=== PATIENT | female | born 2000 | race Caucasian/White ===

== ENCOUNTER 2020-05-12 02:22 | Emergency (ER) | payer SELFPAY ==
[2020-05-12 02:27] VITALS: BP 132/94; PULSE 100; RESP 16; TEMP 36.2; O2SAT 98; BMI 30.9
--- NOTE | 2020-05-12 02:37 | W.ED.ABDPA2 ---
HPI - Abdominal Pain General: Chief Complaint: Abdominal Pain Stated Complaint: Abd pain Time Seen by Provider: 05/12/20 02:26 Source: patient Mode of arrival: ambulatory Limitations: no limitations History of Present Illness: HPI narrative: 19-year-old female states she started having abdominal pain that is cramping in nature first. She states that it is gotten more sharp tonight is in her right lower quadrant. Is worse with movement improved with rest. She states it is been going on for roughly 24 hours. MD elicited complaint: abdominal pain Pertinent past history: none Onset (ago): hour(s) Pain Consistency: constant Location: RLQ Severity: moderate Quality: stabbing Radiation: none Migration to: no migration Exacerbating factors: movement Relieving factors: rest Associated Symptoms: Reports nausea; Denies chills, dysuria and fever(s) Related Data: Date of Last Menstrual Period: 05/01/20 Review of Systems Const: Denies: fever(s), chills, body aches or change in appetite Eyes: Denies: blurry vision or eye discomfort ENMT: Denies: throat pain or dental pain Card: Denies: chest pain Resp: Denies: dyspnea GI: Reports: abdominal pain and nausea : Denies: dysuria Musc: Denies: neck pain or back pain Skin/Breast: Denies: rash Neuro: Denies: headache(s) Psych: Denies: depression [place]/Lymph: Denies: easy bruising All/Imm: Denies: urticaria [facility] Female Reproductive History: Date of last menstrual period: 05/01/20 Physical Exam Const: COMMON NORMALS: no acute distress, patient oriented x3 and healthy appearing HENMT: COMMON NORMALS: normocephalic and atraumatic HEAD & SCALP: normocephalic and atraumatic Eye: COMMON NORMALS: Equal, round and reactive pupils present and EOMs intact bilaterally PUPIL: Yes Equal, round and reactive pupils present Neck/C-Spine: COMMON NORMALS: full ROM and supple Chest: COMMONS NORMALS: normal inspection of the chest and normal palpation of entire chest wall Resp: COMMON NORMALS: normal respiratory effort, No retractions, No use of accessory muscles and clear to auscultation bilaterally AUSCULTATION: clear to auscultation bilaterally Cardio: COMMON NORMALS: regular rate, regular rhythm and No murmurs present (Cardio) RATE: regular rate RHYTHM: regular rhythm GI: COMMON NORMALS: Normal to inspection, nondistended, normoactive bowel sounds present, Soft to palpation and no masses PALPATION: Yes Soft to palpation and Yes Tenderness to palpation present (GI) Details: RLQ Extremity: COMMON NORMALS: normal to inspection and full ROM Neuro: COMMON NORMALS: patient oriented x3, moves all extremities and no focal motor deficits Psych: COMMON NORMALS: mental status grossly normal, Normal thought process present and cooperative THOUGHT PROCESS: Normal thought process present Skin: COMMON NORMALS: no rashes or lesions noted and no wounds GENERAL SKIN EXAM: no rashes or lesions noted Course Vital Signs: Vital signs: Vital Signs Temperature 97.2 F L 05/12/20 02:27 Pulse Rate 74 05/12/20 04:03 Respiratory Rate 16 05/12/20 04:03 Blood Pressure 115/72 05/12/20 04:03 Pulse Oximetry 98 05/12/20 04:03 MDM - Abdominal Pain MDM Narrative: Medical decision making narrative: Patient presents here with abdominal pain that since resolved. Her exam at discharge is benign. CT scan shows no signs of appendicitis. Patient's lab work here is normal as well. She is stable for discharge will place her on Bentyl. She is to follow-up with PCP in 3 to 5 days return if worsening. Lab Data: Labs: Lab Results 05/12/20 05/12/20 05/12/20 Range/Units 02:50 02:50 03:00 WBC 12.1 H (4.0-10.0) 10^3/ uL RBC 4.72 (4.1-5.3) 10^6/u L Hgb 14.6 (11.5-15.3) g/dL Hct 43.8 (37.0-47.0) % MCV 92.8 (81-99) fL MCH 30.9 (28.0-34.0) pg MCHC 33.3 (30.0-36.0) g/dL RDW 11.6 L (12.1-15.1) % Plt Count 393 (130-400) 10^3/c mm MPV 10.4 (7.4-10.4) fL Neut % (Auto) 72.9 % Lymph % (Auto) 20.7 % [place] % (Auto) 5.4 % Eos % (Auto) 0.3 % Baso % (Auto) 0.5 % Neut # (Auto) 8.83 H (1.8-7.7) 10^3/u L Lymph # (Auto) 2.5 (0.8-4.8) 10^3/u L [place] # (Auto) 0.7 (0.2-0.9) 10^3/u L Eos # (Auto) 0.0 (0.0-0.8) 10^3/u L Baso # (Auto) 0.1 (0.0-0.1) 10^3/u L Nucleated RBC % (a uto) 0 % Nucleated RBCs # 0.0 /100WBC Sodium (136-145) mmol/L Potassium (3.5-5.1) mmol/L Chloride (98-107) mmol/L Carbon Dioxide (22-29) mmol/L Anion Gap (5-19) BUN (6-20) mg/dL Creatinine (0.5-0.9) mg/dL GFR Calculation (90-130) mL/min Glucose (65-115) mg/dL Calculated Osmolal ity (285-295) mOsm/k g Calcium (8.5-10.5) mg/dL Total Bilirubin (0.15-1.2) mg/dL AST (0-32) U/L ALT (0-33) U/L Alkaline Phosphata se (35-105) IU/L Total Protein (6.6-8.7) g/dL Albumin (3.5-5.2) g/dL Globulin (1.3-4.6) g/dL Lipase (13-60) U/L HCG, Qual Negative (Negative) Urine Color Yellow (Yellow) Urine Appearance Clear (CLEAR) Urine pH 5 (5-7) Ur Specific Gravit y 1.020 (1.005-1.030) Urine Protein Neg (Negative) Urine Glucose (UA) Norm (Normal) Urine Ketones 1+ H (Negative) Urine Blood 2+ H (Negative) Urine Nitrate Negative (Negative) Urine Bilirubin Neg (Negative) Urine Urobilinogen Norm (Negative) mg/dL Ur Leukocyte Sera ase Negative (Negative) Urine RBC 0-4 H (0-2) /hpf Urine WBC 0-4 H (0-5) /hpf Ur Squamous Epith Cells 15-25 H (0-5) /hpf Amorphous Sediment Not Reportable Urine Bacteria 1+ H (NONE) /hpf Urine Mucus Trace /hpf 05/12/20 Range/Units 03:00 WBC (4.0-10.0) 10^3/ uL RBC (4.1-5.3) 10^6/u L Hgb (11.5-15.3) g/dL Hct (37.0-47.0) % MCV (81-99) fL MCH (28.0-34.0) pg MCHC (30.0-36.0) g/dL RDW (12.1-15.1) % Plt Count (130-400) 10^3/c mm MPV (7.4-10.4) fL Neut % (Auto) % Lymph % (Auto) % [place] % (Auto) % Eos % (Auto) % Baso % (Auto) % Neut # (Auto) (1.8-7.7) 10^3/u L Lymph # (Auto) (0.8-4.8) 10^3/u L [place] # (Auto) (0.2-0.9) 10^3/u L Eos # (Auto) (0.0-0.8) 10^3/u L Baso # (Auto) (0.0-0.1) 10^3/u L Nucleated RBC % (a uto) % Nucleated RBCs # /100WBC Sodium 138 (136-145) mmol/L Potassium 3.7 (3.5-5.1) mmol/L Chloride 102 (98-107) mmol/L Carbon Dioxide 23 (22-29) mmol/L Anion Gap 16.7 (5-19) BUN 8 (6-20) mg/dL Creatinine 0.7 (0.5-0.9) mg/dL GFR Calculation 105.6 (90-130) mL/min Glucose 97 (65-115) mg/dL Calculated Osmolal ity 284 L (285-295) mOsm/k g Calcium 9.6 (8.5-10.5) mg/dL Total Bilirubin 0.5 (0.15-1.2) mg/dL AST 24 (0-32) U/L ALT 32 (0-33) U/L Alkaline Phosphata se 85 (35-105) IU/L Total Protein 8.2 (6.6-8.7) g/dL Albumin 4.8 (3.5-5.2) g/dL Globulin 3.4 (1.3-4.6) g/dL Lipase 22 (13-60) U/L HCG, Qual (Negative) Urine Color (Yellow) Urine Appearance (CLEAR) Urine pH (5-7) Ur Specific Gravit y (1.005-1.030) Urine Protein (Negative) Urine Glucose (UA) (Normal) Urine Ketones (Negative) Urine Blood (Negative) Urine Nitrate (Negative) Urine Bilirubin (Negative) Urine Urobilinogen (Negative) mg/dL Ur Leukocyte Sera ase (Negative) Urine RBC (0-2) /hpf Urine WBC (0-5) /hpf Ur Squamous Epith Cells (0-5) /hpf Amorphous Sediment Urine Bacteria (NONE) /hpf Urine Mucus /hpf Imaging Data ^: CT Abd/Pel: Attestation: I personally reviewed and interpreted this imaging study as follows: Radiologist's impression: [place] [address] CT Scan Report Signed Patient: Rolly Nickerson Unit #: [id number] : 2000 Age/Sex: 19 / F ADM Date: 05/12/20 Loc: ER Room/Bed: Attending Dr: Ordering Provider/Ordering MD: Neno Russell MD Date of Service: 05/12/20 Procedure(s): CT abdomen pelvis w con* [id number] Accession Number(s): [id number] Report Number: [id number] PROCEDURE INFORMATION: Exam: CT Abdomen And Pelvis With Contrast Exam date and time: 05/12/2020 2:38 AM Age: 19 years old Clinical indication: Abdominal pain; Localized; Right lower quadrant (rlq); Prior surgery; Surgery date: 6+ months; Surgery type: Gb; Additional info: Rlq pain TECHNIQUE: Imaging protocol: Computed tomography of the abdomen and pelvis with intravenous contrast. Radiation optimization: All CT scans at this facility use at least one of these dose optimization techniques: automated exposure control; mA and/or kV adjustment per patient size (includes targeted exams where dose is matched to clinical indication); or iterative reconstruction. Contrast material: OMNI 300; Contrast volume: 95 ml; Contrast route: INTRAVENOUS (IV); COMPARISON: No relevant prior studies available. RADIATION DOSE METRICS: Total DLP (mGy-cm): 1371.74 FINDINGS: Lungs: The lung bases are clear. Liver: Unremarkable. Gallbladder and bile ducts: Prior cholecystectomy, no significant biliary tree dilation.. Pancreas: Unremarkable. Spleen: Unremarkable. Adrenals: Unremarkable. Kidneys and ureters: No hydronephrosis of either kidney. No visible ureteral calculus. No perinephric fluid. The kidneys enhance homogeneously. Stomach and bowel: There are no CT findings to strongly suggest diverticulitis. Appendix: The appendix is visualized and appears normal. Intraperitoneal space: No free air, ascites, or bowel distention. Vasculature: No evidence for abdominal aortic aneurysm. Lymph nodes: No retroperitoneal adenopathy. Bladder: Suspect mild to moderate diffuse urinary bladder wall thickening. Evaluation is somewhat limited, as the bladder is not well distended. While nonspecific, this could indicate evidence for cystitis. Please correlate clinically. Reproductive: Essentially unremarkable for age. Bones/joints: No significant acute finding. Soft tissues: Very small umbilical hernia, containing only fat. CT/CT abdomen pelvis w con* [id number] IMPRESSION: 1. Normal appendix. 2. Possible mild urinary bladder wall thickening, see above. 3. No hydronephrosis of either kidney. No visible ureteral calculus. No perinephric fluid. 4. No free air or bowel distention. 5. Other findings discussed above. 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
[2020-05-12] MEDS: sodium chloride 0.9% 1,000 ML 999 ML IV (02:56)
[2020-05-12 02:58] VITALS: RESP 16; O2SAT 97
[2020-05-12] MEDS: morphine 4 mg/mL SDV 1 mL IVP (02:58)
[2020-05-12] MEDS: ondansetron 2 mg/ML SDV 2 mL 4 MG IVP (03:00)
[2020-05-12 03:02] VITALS: BP 127/81; PULSE 92; RESP 16; O2SAT 98
[2020-05-12 03:16] LABS: Basophils # 0.1 10^3/uL (0.0-0.1); Basophils % 0.5 %; Eosinophils % 0.3 %; Hematocrit 43.8 % (37.0-47.0); Hemoglobin 14.6 g/dL (11.5-15.3); Lymphocytes # 2.5 10^3/uL (0.8-4.8); Lymphocytes % 20.7 %; Mean Corpuscular HGB Conc 33.3 g/dL (30.0-36.0); Mean Corpuscular Hemoglobin 30.9 pg (28.0-34.0); Mean Corpuscular Volume 92.8 fL (81-99); Mean Platelet Volume 10.4 fL (7.4-10.4); Monocytes # 0.7 10^3/uL (0.2-0.9); Monocytes % 5.4 %; Neutrophils # 8.83 10^3/uL (1.8-7.7); Neutrophils % 72.9 %; Nucleated Red Blood Cells % 0 %; Platelet Count 393 10^3/cmm (130-400); Red Blood Count 4.72 10^6/uL (4.1-5.3); Red Cell Distribution Width 11.6 % (12.1-15.1); White Blood Count 12.1 10^3/uL (4.0-10.0)
[2020-05-12 03:22] LABS: HCG Qualitative Urine. Negative (Negative)
[2020-05-12 03:31] LABS: Add Urine Microscopic? YES; Bilirubin Urine Neg (Negative); Blood Urine 2+ (Negative); Glucose Urine UA Norm (Normal); Ketones Urine 1+ (Negative); Leukocyte Esterase Urine Negative (Negative); Nitrate Urine Negative (Negative); Protein Urine Neg (Negative); Urine Appearance Clear (CLEAR); Urine Color Yellow (Yellow); Urobilinogen Urine Norm (Negative); pH Urine 5 (5-7)
[2020-05-12 03:34] LABS: Alanine Aminotransferase 32 U/L (0-33); Albumin Level 4.8 g/dL (3.5-5.2); Alkaline Phosphatase 85 IU/L (35-105); Anion Gap 16.7 (5-19); Aspartate Amino Transferase 24 U/L (0-32); Blood Urea Nitrogen 8 mg/dL (6-20); Calcium 9.6 mg/dL (8.5-10.5); Carbon Dioxide 23 mmol/L (22-29); Chloride 102 mmol/L (98-107); Globulin 3.4 g/dL (1.3-4.6); Glomerular Filtration Rate 105.6 mL/min (90-130); Glucose 97 mg/dL (65-115); Lipase 22 U/L (13-60); Osmolality Calculated 284 mOsm/kg (285-295); Potassium 3.7 mmol/L (3.5-5.1); Sodium 138 mmol/L (136-145); Total Bilirubin 0.5 mg/dL (0.15-1.2); Total Protein 8.2 g/dL (6.6-8.7)
[2020-05-12] MEDS: iohexol 300 mg/mL 100 mL Btl IV (03:34)
[2020-05-12 03:40] LABS: Add Urine Culture? No; Bacteria Urine 1+ /hpf; Mucus Urine TRACE /hpf; RBC Urine 0-4 /hpf (0-2); Squamous Epithelial Cell Urine 15-25 /hpf (0-5); WBC Urine 0-4 /hpf (0-5)
[2020-05-12 04:03] VITALS: BP 115/72; PULSE 74; RESP 16; O2SAT 98
[2020-05-12 04:25] VITALS: BP 123/88; PULSE 79; RESP 16; TEMP 36.6; O2SAT 100
== END 2020-05-12 04:28 | disposition home or self-care (01) ==
PROVIDERS: Emergency Provider Emergency Medicine
DX: R10.84 Generalized abdominal pain (principal)
CPT/HCPCS: 12345; 74177; 80053; 81001; 81025; 83690; 85025; 96360; 96374; 99283; 99284; J2270; J2405; J7030; Q9967

== ENCOUNTER 2020-12-24 13:59 | Emergency (ER) | payer SELFPAY ==
[2020-12-24 14:22] VITALS: BP 123/86; PULSE 107; RESP 18; TEMP 36.9; O2SAT 99; BMI 35.4
--- NOTE | 2020-12-24 16:28 | USCV_ITS ---
Rolly Nickerson Age: 20 Gender: F : 2000 Exam Date: 12/24/2020 16:37 Ordering Phys: Regla Song Technologist: Cassie Russo Exam Location: [facility] Indication: LUE PAIN AND SWELLING NEAR ACF HISTORY: Upper extremity swelling. Upper extremity pain. PROCEDURES: Venous duplex imaging was performed in only the left upper extremity. The following venous structures were evaluated: internal jugular vein, subclavian vein, axillary vein, and brachial veins. Serial compression, augmentation maneuvers, and spectral Doppler flow evaluation were performed. FINDINGS: LUE NEG FOR DVT CONCLUSIONS No evidence of thrombus of the left upper extremity veins. Allan Cid MD (Electronically Signed) Final Date: 24 Dec 2020 16:59 S
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
== END 2020-12-24 16:57 | disposition home or self-care (01) ==
PROVIDERS: Emergency Provider Physician Assistant
DX: M77.8 Other enthesopathies, not elsewhere classified (principal)
CPT/HCPCS: 93971; 99282

== ENCOUNTER 2021-06-16 22:57 | Emergency (ER) | payer SELFPAY ==
[2021-06-16 23:03] VITALS: BP 133/85; PULSE 107; RESP 16; TEMP 36.8; O2SAT 100; BMI 31.8
--- NOTE | 2021-06-16 23:36 | W.ED.GENADLT ---
HPI - General Adult General: Chief complaint: General Medical Stated complaint: knot under left arm pit Time Seen by Provider: 06/16/21 23:28 History of Present Illness: HPI narrative: Patient comes in for a tender nodule to the left axilla. On exam patient appears well. Patient appears no acute distress. Patient denies any chronic medical problems. Review of Systems General: Reports: 10 or more systems reviewed and unremarkable except in HPI and below Skin/Breast: Reports: new lesions [facility] Female Reproductive History: Date of last menstrual period: 06/04/21 Physical Exam Const: COMMON NORMALS: no acute distress and patient oriented x3 GENERAL APPEARANCE: cooperative HENMT: COMMON NORMALS: normocephalic and Normal external nose present HEAD & SCALP: normal to inspection and normocephalic NOSE: Normal external nose present Eye: GENERAL EYE: appearance normal, both eyes and all related structures Neck/C-Spine: COMMON NORMALS: full ROM Chest: COMMONS NORMALS: normal inspection of the chest Resp: COMMON NORMALS: normal respiratory effort EFFORT & INSPECTION: Yes able to speak in complete sentences Cardio: COMMON NORMALS: regular rate and regular rhythm RATE: regular rate RHYTHM: regular rhythm GI: COMMON NORMALS: non-tender Extremity: COMMON NORMALS: normal to inspection Neuro: COMMON NORMALS: patient oriented x3 and moves all extremities Psych: COMMON NORMALS: mental status grossly normal and cooperative Skin: NARRATIVE SKIN EXAM: 1 cm nodule noted to the left axilla that is tender to palpation. Minimal to no redness is noted. No warmth is noted. Course Vital Signs: Vital signs: Vital Signs Temperature 98.3 F 06/16/21 23:03 Pulse Rate 91 06/16/21 23:46 Respiratory Rate 16 06/16/21 23:46 Blood Pressure 102/72 06/16/21 23:46 Pulse Oximetry 95 06/16/21 23:46 MDM - General Adult MDM Narrative: Medical decision making narrative: Patient came in for a tender nodule to the left axilla. On exam there is a palpable nodule that is free moving and tender to touch. Differential diagnosis includes abscess, apocrine cyst, cellulitis. No signs of cellulitis noted at this time. Will start on Bactrim due to the tenderness. Discussed treatment with warm packs and avoidance of of antiperspirants. Recommend follow-up with primary care for further instruction. Return to the ER for worsening symptoms. Patient reported understanding. Discharge Plan Discharge Patient Disposition: Home Clinical Impression: Apocrine cyst Condition: Stable Prescriptions: New Bactrim DS 800-160 mg tablet 1 tab PO BID 7 Days Qty: 14 RF: 0 No Action dicyclomine 20 mg tablet 20 mg PO TID PRN (Reason: abdominal pain) Qty: 20 RF: 0 Discharge Orders: Discharge ED (Routine); Ordered 06/16/21 Ordered By: Keny Rodriguez Discharge Diet: Usual diet Discharge Activity: Increase activity as tolerated Patient Instructions: Cyst (ED), Opioid Safety Activity Restrictions/Additional Instructions: Avoid the use of antiperspirant containing aluminum until the cyst resolves. You may use plain deodorant. Use hot packs to the cyst to help open up the poor in order for it to drain. Monitor for at this to swell or become red. Return to the ER for high fever greater than 100.4 or new concerns. Follow-up with primary care as needed. 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
[2021-06-16 23:46] VITALS: BP 102/72; PULSE 91; RESP 16; O2SAT 95
[2021-06-16] MEDS: sulfamethoxazole-trimeth DS 160-800 mg Tablet 1 TAB PO (23:46)
== END 2021-06-16 23:50 | disposition home or self-care (01) ==
PROVIDERS: Emergency Provider Nurse Practitioner Family
DX: D23.62 Other benign neoplasm of skin of left upper limb, including shoulder (principal)
CPT/HCPCS: 99282

== ENCOUNTER 2021-08-07 15:34 | Emergency (ER) | payer SELFPAY ==
[2021-08-07 15:51] VITALS: BP 118/90; PULSE 92; RESP 20; TEMP 36.6; O2SAT 100
== END 2021-08-07 21:44 | disposition left against medical advice (07) ==
LOC: ER 15:37
DX: Z53.21 Procedure and treatment not carried out due to patient leaving prior to being seen by health care provider (principal)
CPT/HCPCS: 99282

== ENCOUNTER 2021-08-09 09:54 | Emergency (ER) | payer SELFPAY ==
--- NOTE | 2021-08-09 10:18 | W.ED.NAVMDI ---
HPI - Nausea/Vomiting/Diarrhea General: Chief complaint: Abdominal Pain Stated complaint: THROWING UP Time Seen by Provider: 08/09/21 09:56 Source: patient Mode of arrival: ambulatory Limitations: no limitations History of Present Illness: HPI Narrative: 21-year-old female who states she has been having nausea vomiting body aches for last 2 days states she had both levels of the vomiting yesterday and was unable to hold anything down states that she has not had any vomiting today but she has not attempted to drink or eat much today. States she has full body aches denies any fever denies any worsening improving factors. She has had no diarrhea denies any known sick contacts denies any abdominal pain. Associated nausea: Yes Associated symtoms: Reports nausea; Denies chest pain, dysuria or headache(s) Review of Systems Const: Reports: body aches Eyes: Denies: blurry vision or eye discomfort ENMT: Denies: throat pain or dental pain Card: Denies: chest pain Resp: Denies: dyspnea GI: Reports: nausea, vomiting and diarrhea : Denies: dysuria Musc: Denies: neck pain or back pain Skin/Breast: Denies: rash Neuro: Denies: headache(s) Psych: Denies: depression Ashvin/Lymph: Denies: easy bruising All/Imm: Denies: urticaria [facility] ED Female Reproductive History: Date of last menstrual period: 06/04/21 Physical Exam Const: COMMON NORMALS: no acute distress, patient oriented x3 and healthy appearing HENMT: COMMON NORMALS: normocephalic and atraumatic HEAD & SCALP: normocephalic and atraumatic Eye: COMMON NORMALS: Equal, round and reactive pupils present and EOMs intact bilaterally PUPIL: Yes Equal, round and reactive pupils present Neck/C-Spine: COMMON NORMALS: full ROM and supple Chest: COMMONS NORMALS: normal inspection of the chest and normal palpation of entire chest wall Resp: COMMON NORMALS: normal respiratory effort, No retractions, No use of accessory muscles and clear to auscultation bilaterally AUSCULTATION: clear to auscultation bilaterally Cardio: COMMON NORMALS: regular rate, regular rhythm and No murmurs present (Cardio) RATE: regular rate RHYTHM: regular rhythm GI: COMMON NORMALS: Normal to inspection, nondistended, normoactive bowel sounds present, Soft to palpation, non-tender and no masses PALPATION: Yes Soft to palpation Extremity: COMMON NORMALS: normal to inspection and full ROM Neuro: COMMON NORMALS: patient oriented x3, moves all extremities and no focal motor deficits Psych: COMMON NORMALS: mental status grossly normal, Normal thought process present and cooperative THOUGHT PROCESS: Normal thought process present Skin: COMMON NORMALS: no rashes or lesions noted and no wounds GENERAL SKIN EXAM: no rashes or lesions noted Course Vital Signs: Vital signs: Vital Signs Temperature 98.7 F 08/09/21 10:22 Pulse Rate 65 08/09/21 12:51 Respiratory Rate 16 08/09/21 12:51 Blood Pressure 102/78 08/09/21 12:51 Pulse Oximetry 98 08/09/21 12:51 MDM - Nausea/Vomiting/Diarrhea MDM Narrative: Medical decision making narrative: Patient presents with abdominal pain along with nausea vomiting she is well-appearing here CT scan and blood work are all normal she feels much improved after Reglan will prescribe her Zofran for home she is to follow-up with PCP and return if worsening she understands agrees to plan. Lab Data: Labs: Lab Results 08/09/21 08/09/21 08/09/21 10:50 10:50 10:50 WBC 13.7 10^3/uL H 10 ^3/uL (4.0-10.0) RBC 5.25 10^6/uL 10^6 /uL (4.1-5.3) Hgb 16.8 g/dL H g/dL (11.5-15.3) Hct 48.5 % H % (37.0-47.0) MCV 92.4 fl fl (81-99) MCH 32.0 pg pg (28.0-34.0) MCHC 34.6 g/dL g/dL (30.0-36.0) RDW 12.2 % % (12.1-15.1) Plt Count 416 10^3/cmm H 10 ^3/cmm (130-400) MPV 10.4 fL fL (7.4-10.4) Neut % (Auto) 81.9 % % Lymph % (Auto) 10.1 % % Bollinger % (Auto) 7.6 % % Eos % (Auto) 0.0 % % Baso % (Auto) 0.2 % % Neut # (Auto) 11.24 10^3/uL H 1 0^3/uL (1.8-7.7) Lymph # (Auto) 1.4 10^3/uL 10^3/ uL (0.8-4.8) Bollinger # (Auto) 1.0 10^3/uL H 10^ 3/uL (0.2-0.9) Eos # (Auto) 0.0 10^3/uL 10^3/ uL (0.0-0.8) Baso # (Auto) 0.0 10^3/uL 10^3/ uL (0.0-0.1) Nucleated RBC % (a uto) 0 % % Nucleated RBCs # 0.0 /100WBC /100W BC Sodium 140 mmol/L mmol/L (136-145) Potassium 3.6 mmol/L mmol/L (3.5-5.1) Chloride 99 mmol/L mmol/L (98-107) Carbon Dioxide 21 mmol/L L mmol/ L (22-29) Anion Gap 23.6 H (5-19) BUN 13 mg/dL mg/dL (6-20) Creatinine 0.8 mg/dL mg/dL (0.5-0.9) GFR Calculation 88.9 mL/min L mL/ min (90-130) Glucose 94 mg/dL mg/dL (65-115) Calculated Osmolal ity 290 mOsm/kg mOsm/ kg (285-295) Calcium 9.3 mg/dL mg/dL (8.5-10.5) Total Bilirubin 0.8 mg/dL mg/dL (0.15-1.2) AST 27 U/L U/L (0-32) ALT 30 U/L U/L (0-33) Alkaline Phosphata se 83 IU/L IU/L (35-105) Total Protein 8.5 g/dL g/dL (6.6-8.7) Albumin 5.3 g/dL H g/dL (3.5-5.2) Globulin 3.2 g/dL g/dL (1.3-4.6) Lipase 31 U/L U/L (13-60) HCG, Qual Negative (Negative) Urine Color Urine Appearance Urine pH Ur Specific Gravit y Urine Protein Urine Glucose (UA) Urine Ketones Urine Blood Urine Nitrate Urine Bilirubin Urine Urobilinogen Ur Leukocyte Sera ase Urine RBC Urine WBC Ur Squamous Epith Cells Amorphous Sediment Urine Bacteria Urine Mucus SARS-CoV-2 Ag (Rap id) 08/09/21 08/09/21 10:54 10:54 WBC RBC Hgb Hct MCV MCH MCHC RDW Plt Count MPV Neut % (Auto) Lymph % (Auto) Bollinger % (Auto) Eos % (Auto) Baso % (Auto) Neut # (Auto) Lymph # (Auto) Bollinger # (Auto) Eos # (Auto) Baso # (Auto) Nucleated RBC % (a uto) Nucleated RBCs # Sodium Potassium Chloride Carbon Dioxide Anion Gap BUN Creatinine GFR Calculation Glucose Calculated Osmolal ity Calcium Total Bilirubin AST ALT Alkaline Phosphata se Total Protein Albumin Globulin Lipase HCG, Qual Urine Color Dark yellow (Yellow) Urine Appearance Sl hazy (CLEAR) Urine pH 5 (5-7) Ur Specific Gravit y 1.020 (1.005-1.030) Urine Protein Trace (Negative) Urine Glucose (UA) Norm (Normal) Urine Ketones 2+ H (Negative) Urine Blood 3+ H (Negative) Urine Nitrate Negative (Negative) Urine Bilirubin 1+ H (Negative) Urine Urobilinogen 1 mg/dL H mg/dL (Negative) Ur Leukocyte Sera ase Negative (Negative) Urine RBC 0-4 /hpf H /hpf (0-2) Urine WBC 0-4 /hpf H /hpf (0-5) Ur Squamous Epith Cells 15-25 /hpf H /hpf (0-5) Amorphous Sediment 1+ /hpf /hpf Urine Bacteria 1+ /hpf H /hpf (NONE) Urine Mucus 3+ /hpf /hpf SARS-CoV-2 Ag (Rap id) Negative (Negative) Imaging Data^: CT Abd/Pel: Attestation: I personally reviewed and interpreted this imaging study as follows: Radiologist's impression: [address] [address] [address] Scan Report Signed Patient: Rolly Nickerson Unit #: [id number] : 2000 Age/Sex: 21 / F ADM Date: 08/09/21 Loc: ER Room/Bed: Attending Dr: Ordering Provider/Ordering MD: Neno Russell MD Date of Service: 08/09/21 Procedure(s): CT abdomen pelvis w con* [id number] Accession Number(s): [id number] Report Number: [id number] PROCEDURE INFORMATION: Exam: CT Abdomen And Pelvis With Contrast Exam date and time: 08/09/2021 11:29 AM Age: 21 years old Clinical indication: Nausea and vomiting; Abdominal pain; Generalized TECHNIQUE: Imaging protocol: Computed tomography of the abdomen and pelvis with contrast. Radiation optimization: All CT scans at this facility use at least one of these dose optimization techniques: automated exposure control; mA and/or kV adjustment per patient size (includes targeted exams where dose is matched to clinical indication); or iterative reconstruction. Contrast material: OMNI 300; Contrast volume: 95 ml; Contrast route: INTRAVENOUS (IV); COMPARISON: CT abdomen pelvis w con* [id number] 05/12/2020 3:29 AM RADIATION DOSE METRICS: Total DLP (mGy-cm): 1693.19 FINDINGS: Liver: Normal. No mass. Gallbladder and bile ducts: Cholecystectomy. Normal bile ducts. Pancreas: Normal. No ductal dilation. Spleen: There is a 7 mm benign cyst in the spleen. Adrenal glands: Normal. No mass. Kidneys and ureters: Normal. No hydronephrosis. Stomach and bowel: Unremarkable. No obstruction. No mucosal thickening. Appendix: The appendix is identified and is normal. Intraperitoneal space: Unremarkable. No free air. No significant fluid collection. Vasculature: Unremarkable. No abdominal aortic aneurysm. Lymph nodes: Unremarkable. No enlarged lymph nodes. Urinary bladder: Unremarkable as visualized. Reproductive: Unremarkable as visualized. Bones/joints: Unremarkable. No acute fracture. Soft tissues: Unremarkable. CT/CT abdomen pelvis w con* [id number] IMPRESSION: No significant abnormalities are seen in the abdomen and pelvis. Dictated By: Zoltan Yousif Signed By: Zoltan Yousif Signed Date/Time: 08/09/21 1330 DD/ 1129 Discharge Plan Discharge Patient Disposition: Home Clinical Impression: Abdominal pain Qualifiers: Abdominal location: generalized Qualified Code(s): R10.84 - Generalized abdominal pain Vomiting Qualifiers: Vomiting type: unspecified Vomiting Intractability: non-intractable Nausea presence: with nausea Qualified Code(s): R11.2 - Nausea with vomiting, unspecified Condition: Stable Prescriptions: New ondansetron 4 mg tablet,disintegrating 4 mg PO Q6H PRN (Reason: nausea and vomiting) Qty: 14 RF: 0 No Action dicyclomine 20 mg tablet 20 mg PO TID PRN (Reason: abdominal pain) Qty: 20 RF: 0 Discharge Orders: Discharge ED (Routine); Ordered 08/09/21 Ordered By: Neno Russell Discharge Diet: Advance as tolerated Discharge Activity: Resume usual activity Patient Instructions: Acute Nausea and Vomiting (ED), Abdominal Pain (ED) Coding Level of Care Code ED Candy Butcher for Chg Fwd Exam Comprehensive
[2021-08-09 10:22] VITALS: BP 113/75; PULSE 67; RESP 18; TEMP 37.1; O2SAT 95; BMI 30.1
[2021-08-09 10:58] VITALS: BP 102/78; PULSE 67; RESP 18; O2SAT 95
[2021-08-09 11:01] LABS: Basophils % 0.2 %; Hematocrit 48.5 % (37.0-47.0); Hemoglobin 16.8 g/dL (11.5-15.3); Lymphocytes # 1.4 10^3/uL (0.8-4.8); Lymphocytes % 10.1 %; Mean Corpuscular HGB Conc 34.6 g/dL (30.0-36.0); Mean Corpuscular Volume 92.4 fl (81-99); Mean Platelet Volume 10.4 fL (7.4-10.4); Monocytes % 7.6 %; Neutrophils # 11.24 10^3/uL (1.8-7.7); Neutrophils % 81.9 %; Nucleated Red Blood Cells % 0 %; Platelet Count 416 10^3/cmm (130-400); Red Blood Count 5.25 10^6/uL (4.1-5.3); Red Cell Distribution Width 12.2 % (12.1-15.1); White Blood Count 13.7 10^3/uL (4.0-10.0)
[2021-08-09] MEDS: sodium chloride 0.9% 1,000 ML 999 ML IV ×2 (11:01→12:25)
[2021-08-09] MEDS: ondansetron 2 mg/ML SDV 2 mL 4 MG IVP (11:01)
[2021-08-09 11:13] LABS: HCG, Serum Qual Negative (Negative)
[2021-08-09 11:15] LABS: Add Urine Culture? No; Add Urine Microscopic? YES; Amorphous Sediment Urine 1+ /hpf; Bacteria Urine 1+ /hpf; Bilirubin Urine 1+ (Negative); Blood Urine 3+ (Negative); Glucose Urine UA Norm (Normal); Ketones Urine 2+ (Negative); Leukocyte Esterase Urine Negative (Negative); Mucus Urine 3+ /hpf; Nitrate Urine Negative (Negative); Protein Urine Trace (Negative); RBC Urine 0-4 /hpf (0-2); Squamous Epithelial Cell Urine 15-25 /hpf (0-5); Urine Appearance SL Hazy (CLEAR); Urine Color Dark Yellow (Yellow); Urobilinogen Urine 1 mg/dL (Negative); WBC Urine 0-4 /hpf (0-5); pH Urine 5 (5-7)
[2021-08-09 11:20] LABS: Chloride 99 mmol/L (98-107); Sodium 140 mmol/L (136-145)
[2021-08-09 11:23] LABS: SARS Covid-2 Antigen Negative (Negative)
[2021-08-09 11:26] LABS: Albumin Level 5.3 g/dL (3.5-5.2); Anion Gap 23.6 (5-19); Blood Urea Nitrogen 13 mg/dL (6-20); Calcium 9.3 mg/dL (8.5-10.5); Carbon Dioxide 21 mmol/L (22-29); Globulin 3.2 g/dL (1.3-4.6); Glomerular Filtration Rate 88.9 mL/min (90-130); Glucose 94 mg/dL (65-115); Lipase 31 U/L (13-60); Osmolality Calculated 290 mOsm/kg (285-295); Total Bilirubin 0.8 mg/dL (0.15-1.2); Total Protein 8.5 g/dL (6.6-8.7)
[2021-08-09 11:27] LABS: Alanine Aminotransferase 30 U/L (0-33); Alkaline Phosphatase 83 IU/L (35-105); Aspartate Amino Transferase 27 U/L (0-32); Potassium 3.6 mmol/L (3.5-5.1)
--- NOTE | 2021-08-09 11:29 | CTR_ITS ---
PROCEDURE INFORMATION: Exam: CT Abdomen And Pelvis With Contrast Exam date and time: 08/09/2021 11:29 AM Age: 21 years old Clinical indication: Nausea and vomiting; Abdominal pain; Generalized TECHNIQUE: Imaging protocol: Computed tomography of the abdomen and pelvis with contrast. Radiation optimization: All CT scans at this facility use at least one of these dose optimization techniques: automated exposure control; mA and/or kV adjustment per patient size (includes targeted exams where dose is matched to clinical indication); or iterative reconstruction. Contrast material: OMNI 300; Contrast volume: 95 ml; Contrast route: INTRAVENOUS (IV); COMPARISON: CT abdomen pelvis w con* [id number] 05/12/2020 3:29 AM RADIATION DOSE METRICS: Total DLP (mGy-cm): 1693.19 FINDINGS: Liver: Normal. No mass. Gallbladder and bile ducts: Cholecystectomy. Normal bile ducts. Pancreas: Normal. No ductal dilation. Spleen: There is a 7 mm benign cyst in the spleen. Adrenal glands: Normal. No mass. Kidneys and ureters: Normal. No hydronephrosis. Stomach and bowel: Unremarkable. No obstruction. No mucosal thickening. Appendix: The appendix is identified and is normal. Intraperitoneal space: Unremarkable. No free air. No significant fluid collection. Vasculature: Unremarkable. No abdominal aortic aneurysm. Lymph nodes: Unremarkable. No enlarged lymph nodes. Urinary bladder: Unremarkable as visualized. Reproductive: Unremarkable as visualized. Bones/joints: Unremarkable. No acute fracture. Soft tissues: Unremarkable. CT/CT abdomen pelvis w con* [id number] IMPRESSION: No significant abnormalities are seen in the abdomen and pelvis.
[2021-08-09] MEDS: diphenhydrAMINE 50 mg/mL SDV 1mL IVP (11:38)
[2021-08-09] MEDS: metoclopramide 5 mg/mL SDV 2 mL 10 MG IVP (11:38)
[2021-08-09] MEDS: iohexol 300 mg/mL 100 mL Btl IV (12:09)
[2021-08-09 12:51] VITALS: BP 102/78; PULSE 65; RESP 16; O2SAT 98
[2021-08-09 14:04] VITALS: BP 90/55; PULSE 87; O2SAT 99
== END 2021-08-09 14:10 | disposition home or self-care (01) ==
PROVIDERS: Physician Assistant; Emergency Provider Emergency Medicine
DX: R10.84 Generalized abdominal pain (principal); R11.2 Nausea with vomiting, unspecified; Z20.822 Contact with and (suspected) exposure to COVID-19
CPT/HCPCS: 74177; 80053; 81001; 83690; 84703; 85025; 87426; 96361; 96374; 96375; 99284; J1200; J2405; J2765; J7030; Q9967

== ENCOUNTER 2021-08-10 14:15 | Emergency (ER) | payer SELFPAY ==
--- NOTE | 2021-08-10 14:44 | ED_ITS ---
HPI - General Adult General: Chief complaint: Allergic Reaction Stated complaint: REACTION TO ZOFRAN Time Seen by Provider: 08/10/21 14:44 Source: patient Mode of arrival: ambulatory Limitations: no limitations History of Present Illness: HPI narrative: Patient is a 21-year-old female here for concerns of a possible adverse reaction to Zofran. Patient was seen in the ED yesterday with complaints of abdominal pain nausea and vomiting. She received a full work-up including labs and CT imaging. Patient states she was unable to fill her Zofran prescription until today. She states she took 1 tablet around noon and about an hour later began having palpitations and some lightheadedness. Patient states she does not want any form of evaluation/work- up today. She is requesting a different antiemetic to help with the nausea. Associated symptoms: Reports nausea and palpitations; Deny chest pain, dyspnea, headache(s), malaise, rash or syncope Review of Systems Const: Denies: fever(s), chills, body aches, fatigue or malaise ENMT: Denies: throat pain, odynophagia, nasal discharge or nasal congestion Card: Reports: palpitations and lightheadedness; Denies: chest pain, irregular heart rhythm, edema, swelling of feet/ankles, syncope, pre-syncope, dyspnea on exertion, orthopnea, leg pain with exertion or acrocyanosis Resp: Denies: dyspnea, productive cough, non-productive cough, hemoptysis or chest congestion GI: Reports: abdominal pain and nausea; Denies: hematemesis : Denies: flank pain or dysuria Musc: Denies: neck pain, back pain, extremity pain or joint pain Skin/Breast: Denies: rash Neuro: Denies: headache(s), numbness in extremities, weakness in extremities or sensory changes [facility] ED Female Reproductive History: Date of last menstrual period: 06/04/21 Physical Exam Const: COMMON NORMALS: no acute distress, patient oriented x3, no limitations and alert GENERAL APPEARANCE: cooperative HENMT: COMMON NORMALS: normocephalic and atraumatic HEAD & SCALP: normocephalic and atraumatic Chest: COMMONS NORMALS: normal inspection of the chest and normal palpation of entire chest wall Resp: COMMON NORMALS: normal respiratory effort and clear to auscultation bilaterally AUSCULTATION: clear to auscultation bilaterally Cardio: COMMON NORMALS: regular rate and regular rhythm RATE: regular rate RHYTHM: regular rhythm GI: COMMON NORMALS: Normal to inspection, nondistended, normoactive bowel sounds present, Soft to palpation, No hepatosplenomegaly present and no masses PALPATION: Yes Soft to palpation, Yes Tenderness to palpation present (GI) (mild epigastic; non-surgical exam) and Yes No hepatosplenomegaly present Extremity: COMMON NORMALS: normal to inspection Neuro: COMMON NORMALS: patient oriented x3 SENSORIUM/ORIENTATION: Yes alert Skin: COMMON NORMALS: no rashes or lesions noted GENERAL SKIN EXAM: no rashes or lesions noted Course Vital Signs: Vital signs: Vital Signs Temperature 98.9 F 08/10/21 14:46 Pulse Rate 76 08/10/21 14:46 Respiratory Rate 18 08/10/21 14:46 Blood Pressure 122/78 08/10/21 14:46 Pulse Oximetry 99 08/10/21 14:46 MDM - General Adult MDM Narrative: Medical decision making narrative: Patient was just evaluated in the ED yesterday for abdominal pain. She had a full ED work-up including labs and CT imaging. She does not want any further evaluation for the abdominal pain (has not worsened since dc yesterday) or her new symptoms (palpitations/lightheadedness) that she feels are related to Zofran use. She is requesting a different anti-emetic. This was provided. Strict return to ED precautions discussed. Discharge Plan Discharge Patient Disposition: Home Clinical Impression: Adverse drug reaction Qualifiers: Encounter type: initial encounter Qualified Code(s): T50.905A - Adverse effect of unspecified drugs, medicaments and biological substances, initial encounter Condition: Stable Prescriptions: New promethazine 25 mg tablet 25 mg PO Q6H PRN (Reason: nausea and vomiting) Qty: 15 RF: 0 Discontinued ondansetron 4 mg tablet,disintegrating 4 mg PO Q6H PRN (Reason: nausea and vomiting) Qty: 14 RF: 0 No Action dicyclomine 20 mg tablet 20 mg PO TID PRN (Reason: abdominal pain) Qty: 20 RF: 0 Discharge Orders: Discharge ED (Routine); Ordered 08/10/21 Ordered By: Regla Song Activity Restrictions/Additional Instructions: You need to return to the emergency department or seek medical reevaluation for worsening abdominal pain, uncontrollable episodes of vomiting, blood in your vomit or stools, fevers, worsening chest pain/palpitations, passing out episodes, or any other concerns you may have. Coding Level of Care Code ED Reliner for Chg Fwd Exam Comprehensive
[2021-08-10 14:46] VITALS: BP 122/78; PULSE 76; RESP 18; TEMP 37.2; O2SAT 99; BMI 30.1
== END 2021-08-10 14:50 | disposition home or self-care (01) ==
PROVIDERS: Emergency Provider Physician Assistant
DX: R00.2 Palpitations (principal); R42 Dizziness and giddiness; T45.0X5A Adverse effect of antiallergic and antiemetic drugs, initial encounter
CPT/HCPCS: 99281

== ENCOUNTER 2021-10-16 08:35 | Emergency (ER) | payer SELFPAY ==
[2021-10-16 08:49] VITALS: BP 107/70; PULSE 76; RESP 18; TEMP 36.6; O2SAT 97; BMI 30.9
[2021-10-16 08:53] VITALS: BP 108/78; O2SAT 96
--- NOTE | 2021-10-16 09:11 | USCV_ITS ---
Rolly Nickerson Age: 21 Gender: F : 2000 Exam Date: 10/16/2021 09:25 Ordering Phys: Jone Benavidez Technologist: [place] [facility] [place] PAIN PROCEDURES: Venous duplex imaging was performed in only the left upper extremity. The following venous structures were evaluated: internal jugular vein, subclavian vein, axillary vein, and brachial veins. In addition, the basilic vein, cephalic vein, radial vein, and ulnar vein. FINDINGS: The veins of the left upper extremity are readily compressible with normal venous flow dynamics including spontaneous flow, respiratory phasic variation and augmentation. CONCLUSIONS No evidence for left upper extremity deep venous thrombosis. Dr. Kenya Olson DO (Electronically Signed) Final Date: 16 October 2021 10:30 S
--- NOTE | 2021-10-16 09:11 | W.ED.EXTPRO ---
HPI - Extremity Problem General: Chief complaint: Extremity Problem,Nontraumatic Stated complaint: Spot under L armpit with pain Time Seen by Provider: 10/16/21 08:46 History of Present Illness: Patient is a 21-year-old female comes to the ED with left arm pain. She is been having some swelling tender nodule under her left armpit that has flared up in the past before and was treated with some antibiotics and steroid. She is also complaining of having some left arm pain that has been on and off for the past couple months. Denies any injury or trauma to left arm to cause pain. Denies any history of blood clots or any swelling in left arm. Denies chest pain, shortness of breath. Associated symptoms: Deny chest pain, fever(s) or rash Review of Systems Const: Denies: fever(s), chills or fatigue Eyes: Denies: change in vision or eye discomfort ENMT: Denies: throat pain, odynophagia, nasal discharge or nasal congestion Card: Denies: chest pain, palpitations, edema, swelling of feet/ankles, dyspnea on exertion or orthopnea Resp: Denies: dyspnea, productive cough or non-productive cough GI: Denies: abdominal pain, nausea, vomiting, diarrhea, constipation or hematochezia : Denies: flank pain, dysuria or hematuria Musc: Reports: extremity pain (Left arm pain); Denies: neck pain, back pain or extremity swelling Skin/Breast: Denies: rash or new lesions Neuro: Denies: headache(s), numbness in extremities or weakness in extremities Ashvin/Lymph: Reports: tender lymph nodes (Left axillary) [facility] ED PFSH: Medical History No pertinent family history Surgical History History of cholecystectomy Female Reproductive History: Date of last menstrual period: 09/12/21 Physical Exam Const: COMMON NORMALS: no acute distress, patient oriented x3, healthy appearing and alert GENERAL APPEARANCE: cooperative and comfortable HENMT: COMMON NORMALS: normocephalic HEAD & SCALP: normocephalic MOUTH: Normal oral and palatal mucosa present THROAT: posterior oropharynx normal and uvula midline Neck/C-Spine: COMMON NORMALS: supple GENERAL: Yes normal visual inspection Lymph: LYMPHATIC: lymphadenopathy left axillary single, soft and tender 0.5 cm Resp: COMMON NORMALS: normal respiratory effort, No retractions, No use of accessory muscles and clear to auscultation bilaterally AUSCULTATION: clear to auscultation bilaterally Cardio: COMMON NORMALS: regular rate, regular rhythm, S1 normal heart sound present, S2 normal heart sound present, No gallops present (Cardio), No clicks present (Cardio), No murmurs present (Cardio) and Peripheral pulses 2+ throughout RATE: regular rate RHYTHM: regular rhythm HEART SOUNDS: S1 normal heart sound present and S2 normal heart sound present PERIPHERAL PULSES: Peripheral pulses 2+ throughout GI: COMMON NORMALS: Normal to inspection, nondistended, normoactive bowel sounds present, Soft to palpation, non-tender and no masses PALPATION: Yes Soft to palpation : COMMON NORMALS: Yes no CVA tenderness BLADDER/KIDNEY EXAM: Yes no CVA tenderness Back/Pelvis: COMMON NORMALS: no CVA tenderness Extremity: COMMON NORMALS: normal to inspection Neuro: COMMON NORMALS: patient oriented x3 and moves all extremities SENSORIUM/ORIENTATION: Yes alert Skin: GENERAL SKIN EXAM: dry skin Course Vital Signs: Vital signs: Vital Signs Temperature 97.8 F 10/16/21 08:49 Pulse Rate 76 10/16/21 08:49 Respiratory Rate 18 10/16/21 08:49 Blood Pressure 108/78 10/16/21 08:53 Pulse Oximetry 96 10/16/21 08:53 MDM - Extremity (Nontraumatic) Medical Decision Making Patient is a 21 old female comes to the ED with left axillary pain and swelling along with pain in left arm. Vital stable. Patient appears in no acute distress or pain. Patient has swollen and tender single left axillary lymph node. No other acute findings. Left arm ultrasound venous duplex showed no blood clots. Patient was diagnosed with lymphadenitis and discharged home with a prescription for Augmentin and prednisone. She was told to follow-up with her PCP in 5 to 7 days for reevaluation. Return to ED precautions given. Patient understood and agreed with plan. Imaging Data US Vascular: Radiologist's impression: Ultrasound venous duplex of left upper extremity showed no blood clots. Discharge Plan Discharge Patient Disposition: Home Clinical Impression: Lymphadenitis Condition: Stable Prescriptions: New Augmentin 500-125 mg tablet 1 tab PO BID 7 Days Qty: 14 0RF prednisone 20 mg tablet 20 mg PO BID 5 Days Qty: 10 0RF No Action dicyclomine 20 mg tablet 20 mg PO TID PRN (Reason: abdominal pain) Qty: 20 0RF promethazine 25 mg tablet 25 mg PO Q6H PRN (Reason: nausea and vomiting) Qty: 15 0RF Rx Instructions: 3 doses during day; last dose no later than 4 hr before bedtime Discharge Orders: Discharge ED (Routine); Ordered 10/16/21 Ordered By: Jone Benavidez Discharge Diet: Regular Discharge Activity: Increase activity as tolerated Patient Instructions: Lymphadenitis Activity Restrictions/Additional Instructions: Follow-up with medical provider as directed in 7 to 10 days for evaluation. Take medications as prescribed. Return to the ER or your medical provider if condition worsens. Please read and understand discharge instructions. Thank you for choosing [facility] for your healthcare needs today. Please realize this is an emergency room and that we are providing you with a medical screening exam and this may not be complete and all inclusive of all the testing and or work up that you may need to determine your ailment or severity of your illness. It is very important that you follow up as instructed or that you return to the Emergency Department should you have concerns or if your condition changes or worsens in any way. Coding Level of Care Code ED Applied Technologist for Marjan Siddiqi Exam Comprehensive
== END 2021-10-16 10:18 | disposition home or self-care (01) ==
PROVIDERS: Emergency Provider Physician Assistant
DX: I88.9 Nonspecific lymphadenitis, unspecified (principal)
CPT/HCPCS: 93971; 99282

== ENCOUNTER 2022-02-22 11:16 | Emergency (ER) | payer SELFPAY ==
[2022-02-22 11:23] VITALS: BP 125/77; PULSE 85; RESP 18; TEMP 36.4; O2SAT 98; BMI 32.8
--- NOTE | 2022-02-22 11:33 | W.ED.ALLEREA ---
HPI - Allergic Reaction General: Chief complaint: Allergic Reaction Stated complaint: allergic rxn Time Seen by Provider: 02/22/22 11:30 Source: patient Mode of arrival: ambulatory Limitations: no limitations History of Present Illness: HPI narrative: 21-year-old female presents emergency room complaining of allergic reaction. She was well swelling in her lips hives on her extremities began around 1030 today she is uncertain what precipitated it. She not had any chest pain no wheezing. MD complaint: allergic reaction Onset (ago): hour(s) Exposure: unknown Associated symptoms: Deny abdominal pain, difficulty breathing, dysphagia, dizziness, facial swelling, hoarseness, itching, lip swelling, nausea, rash, tongue swelling or vomiting Severity: mild Treatment prior to arrival: none Previous Allergic Reaction History: none Review of Systems Const: Denies: fever(s), chills, body aches, change in appetite, fatigue or malaise ENMT: Reports: swelling of lips/tongue (Lips only); Denies: throat pain, uvular edema or hoarseness Card: Denies: chest pain, palpitations, irregular heart rhythm, edema, dyspnea on exertion or orthopnea Resp: Denies: dyspnea, productive cough or non-productive cough GI: Denies: abdominal pain, nausea, vomiting or dysphagia : Denies: flank pain, difficulty voiding, dysuria, urinary frequency or urinary urgency Skin/Breast: Denies: rash or pruritus Neuro: Denies: dizziness All/Imm: Denies: tongue swelling or facial swelling PFS ED PFSH: Medical History No pertinent family history Surgical History History of cholecystectomy Female Reproductive History: Date of last menstrual period: 02/19/22 Physical Exam Const: GENERAL APPEARANCE: cooperative and comfortable ORIENTATION/CONSCIOUSNESS: Yes awake, Yes oriented to person, Yes oriented to place and Yes oriented to time HENMT: COMMON NORMALS: normocephalic, atraumatic, hearing grossly normal bilaterally, external ears normal, EAC's normal, TM's normal bilaterally, Normal nasal mucous membranes and turbinates present, moist oral mucous membranes and oropharynx normal HEAD & SCALP: normocephalic and atraumatic NOSE: Normal nasal mucous membranes and turbinates present EXTERNAL EAR: Yes external ears normal EXTERNAL AUDITORY CANAL: EAC's normal TYMPANIC MEMBRANE: TM's normal bilaterally THROAT: no uvular edema Eye: COMMON NORMALS: Equal, round and reactive pupils present, EOMs intact bilaterally, conjunctivae normal and no scleral icterus CONJUNCTIVA: Yes conjunctivae normal PUPIL: Yes Equal, round and reactive pupils present Neck/C-Spine: COMMON NORMALS: no JVD Resp: COMMON NORMALS: normal respiratory effort, No retractions, No use of accessory muscles and clear to auscultation bilaterally AUSCULTATION: clear to auscultation bilaterally Cardio: COMMON NORMALS: no JVD, regular rate, regular rhythm and No murmurs present (Cardio) RATE: regular rate RHYTHM: regular rhythm GI: COMMON NORMALS: Soft to palpation and No hepatosplenomegaly present AUSCULTATION: Yes normoactive bowel sounds PALPATION: Yes Soft to palpation, No Tenderness to palpation present (GI), No Guarding due to palpation present (GI) and Yes No hepatosplenomegaly present Extremity: COMMON NORMALS: normal to inspection, capillary refill normal, no clubbing, cyanosis or edema, no calf tenderness and no pedal edema Neuro: SENSORIUM/ORIENTATION: Yes oriented to person, Yes oriented to place and Yes oriented to time Skin: COMMON NORMALS: no rashes or lesions noted GENERAL SKIN EXAM: no rashes or lesions noted Course Vital Signs: Vital signs: Vital Signs Temperature 97.6 F 02/22/22 11:23 Pulse Rate 85 02/22/22 11:23 Respiratory Rate 18 02/22/22 11:23 Blood Pressure 125/77 02/22/22 11:23 Pulse Oximetry 98 02/22/22 11:23 MDM - Allergic Reaction Medical Decision Making No respiratory difficulty no stridor. Patient given steroids and antihistamines discharged home with same p.o. follow-up as needed Medical Records I reviewed the patient's medical records. Discharge Plan Discharge Patient Disposition: Home Clinical Impression: Urticaria Condition: Stable Prescriptions: New prednisone 20 mg tablet 20 mg PO TID Qty: 15 0RF Rx Instructions: 1 p.o. 3 times daily x3 days, 1 p.o. twice daily x2 days, 1 p.o. daily x2 days Allergy (diphenhydramine) 25 mg tablet 50 mg PO Q6H PRN (Reason: allergy symptoms) Qty: 20 0RF No Action dicyclomine 20 mg tablet 20 mg PO TID PRN (Reason: abdominal pain) Qty: 20 0RF promethazine 25 mg tablet 25 mg PO Q6H PRN (Reason: nausea and vomiting) Qty: 15 0RF Rx Instructions: 3 doses during day; last dose no later than 4 hr before bedtime Discharge Orders: Discharge ED (Routine); Ordered 02/22/22 Ordered By: Kirk Angel Patient Instructions: Opioid Safety Activity Restrictions/Additional Instructions: Follow-up with your primary care doctor if symptoms persist. He can apply [id number] topical hydrocortisone to the area on the back of the left leg. 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
[2022-02-22] MEDS: diphenhydrAMINE 50 mg/mL SDV 1mL IM (11:42)
== END 2022-02-22 11:54 | disposition home or self-care (01) ==
PROVIDERS: Emergency Provider Family Medicine
DX: L50.9 Urticaria, unspecified (principal)
CPT/HCPCS: 96372; 99284; J1200; J2930

== ENCOUNTER 2022-09-11 07:00 | Emergency (ER) | payer MEDICAID, SELFPAY ==
[2022-09-11 07:18] VITALS: PULSE 55; RESP 16; TEMP 36.6; O2SAT 97; BMI 28.3
--- NOTE | 2022-09-11 07:21 | ECG_ITS ---
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 Measurements Intervals [place] Rate: 80 P: 19 SD: 108 QRS: 58 QRSD: 80 T: 46 QT: 392 QTc: 455 Interpretive Statements SINUS RHYTHM WITH SINUS ARRHYTHMIA WITH SHORT SD INTERVAL NONSPECIFIC T-WAVE ABNORMALITY No previous ECG available for comparison Electronically Signed On 09-11-2022 9:14:53 MANAGER OPERATIONS by Miladys Moctezuma M.D. [id number]
[2022-09-11 07:32] VITALS: RESP 16
--- NOTE | 2022-09-11 07:33 | XRR_ITS ---
PROCEDURE INFORMATION: Exam: XR Chest Exam date and time: 09/11/2022 7:55 AM Age: 22 years old Clinical indication: Shortness of breath; Additional info: SOB TECHNIQUE: Imaging protocol: Radiologic exam of the chest. Views: 1 view. COMPARISON: CR XR chest 2V* [id number] 02/22/2017 2:52 PM FINDINGS: Lungs: Unremarkable. No consolidation. Pleural spaces: Unremarkable. No pleural effusion. No pneumothorax. Heart/Mediastinum: Unremarkable. No cardiomegaly. Bones/joints: Unremarkable. XR/XR chest 1V portable [id number] IMPRESSION: No acute findings.
[2022-09-11] MEDS: sodium chloride 0.9% 1,000 ML 999 ML IV ×2 (07:38→09:46)
[2022-09-11] MEDS: metoclopramide 5 mg/mL SDV 2 mL 10 MG IVP ×2 (07:38→09:46)
--- NOTE | 2022-09-11 07:38 | ED_ITS ---
Documented by User: CAMERON Mcghee 09/11/22 16:51 HPI - Nausea/Vomiting/Diarrhea General: Chief complaint: Abdominal Pain Stated complaint: n/v Time Seen by Provider: 09/11/22 07:08 History of Present Illness: Patient is a 22-year-old female comes to the ED with nausea and vomiting. Symptoms started last night. Her stomach got upset and she started getting really nauseous. She then has been having multiple episodes of emesis all last night and throughout the night. She has not been able to sleep much due to the nausea and vomiting. She also reports having some chest tightness and feeling short of breath. Denies any food poisoning. Patient has a multiple people she lives with who her having the same symptoms currently. Denies any fever, chills. She endorses having body aches. She reports having multiple episodes of diarrhea as well. Associated nausea: Yes Associated symtoms: Reports nausea; Denies change in vision, chest pain, dysuria, fatigue, headache(s) or palpitat ions Review of Systems Const: Denies: fever(s), chills or fatigue Eyes: Denies: change in vision or eye discomfort ENMT: Denies: throat pain, odynophagia, nasal discharge or nasal congestion Card: Denies: chest pain, palpitations, edema, swelling of feet/ankles, dyspnea on exertion or orthopnea Resp: Reports: dyspnea (Chest tightness); Denies: productive cough or non-productive cough GI: Reports: nausea, vomiting and diarrhea; Denies: abdominal pain, constipation or hematochezia : Denies: flank pain, dysuria or hematuria Musc: Denies: neck pain, back pain or extremity swelling Skin/Breast: Denies: rash or new lesions Neuro: Denies: headache(s), numbness in extremities or weakness in extremities PFSH ED PFSH: Medical History No pertinent family history Surgical History History of cholecystectomy Female Reproductive History: Date of last menstrual period: 02/19/22 Physical Exam Const: COMMON NORMALS: no acute distress, patient oriented x3 and alert GENERAL APPEARANCE: cooperative and anxious HENMT: COMMON NORMALS: normocephalic HEAD & SCALP: normocephalic MOUTH: Normal oral and palatal mucosa present THROAT: posterior oropharynx normal and uvula midline Neck/C-Spine: COMMON NORMALS: supple GENERAL: Yes normal visual inspection Resp: COMMON NORMALS: normal respiratory effort, No retractions, No use of accessory muscles and clear to auscultation bilaterally AUSCULTATION: clear to auscultation bilaterally Cardio: COMMON NORMALS: regular rate, regular rhythm, S1 normal heart sound present, S2 normal heart sound present, No gallops present (Cardio), No clicks present (Cardio), No murmurs present (Cardio) and Peripheral pulses 2+ throughout RATE: regular rate RHYTHM: regular rhythm HEART SOUNDS: S1 normal heart sound present and S2 normal heart sound present PERIPHERAL PULSES: Peripheral pulses 2+ throughout GI: COMMON NORMALS: Normal to inspection, nondistended, normoactive bowel sounds present, Soft to palpation, non-tender and no masses PALPATION: Yes Soft to palpation : COMMON NORMALS: Yes no CVA tenderness BLADDER/KIDNEY EXAM: Yes no CVA tenderness Back/Pelvis: COMMON NORMALS: no CVA tenderness Extremity: COMMON NORMALS: normal to inspection Neuro: COMMON NORMALS: patient oriented x3 SENSORIUM/ORIENTATION: Yes alert GAIT: Yes Normal gait present Skin: GENERAL SKIN EXAM: dry skin Course Vital Signs: Vital signs: Vital Signs Temperature 97.8 F 09/11/22 07:18 Pulse Rate 89 09/11/22 09:51 Respiratory Rate 14 09/11/22 09:51 Blood Pressure 132/83 09/11/22 09:51 Pulse Oximetry 91 09/11/22 09:51 Oxygen Delivery Me thod 09/11/22 09:51 MDM - Nausea/Vomiting/Diarrhea Medical Decision Making Patient is a 22-year-old female comes to the ED with nausea and vomiting. Symptoms started last night. Her stomach got upset and she started getting really nauseous. She then has been having multiple episodes of emesis all last night and throughout the night. She has not been able to sleep much due to the nausea and vomiting. She also reports having some chest tightness and feeling short of breath. Denies any food poisoning. Patient has a multiple people she lives with who her having the same symptoms currently. Vitals are stable. White blood cell count of 28 and anion gap was 29. Creatinine 1.2. Lactic acid level was 7.2. ABG showed a blood pH of 7.39. CT of abdomen pelvis showed some possible colitis but no other symptoms. Patient was given 1 L of fluids and couple doses of Reglan and her nausea did improve. She wanted to go home and I discussed with her multiple times that she needs to stay here to the ED and get further IV fluids and further evaluation to see if her lactic goes down after getting over 2 L of IV fluids. I think most of her symptoms and labs are due to dehydration from excessive vomiting and diarrhea. Patient refused to stay get further IV fluids. I discussed with her to come back immediately if she is having any worsening symptoms. She signed out AMA with a prescription of Reglan for nausea. Follow-up with PCP within the next couple days. Patient understood and agreed with plan. Lab Data I reviewed the patient's lab results. 09/11/22 07:29 09/11/22 07:29 Radiology Impressions Chest X-Ray 09/11/22 07:33 IMPRESSION: No acute findings. Abdomen/Pelvis CT 09/11/22 07:46 IMPRESSION: Nonspecific imaging findings, suggestive of colitis. Laboratory Results WBC 28.6 10^3/uL (4.0-10.0) H 09/11/22 07:29 RBC 5.63 10^6/uL (4.1-5.3) H 09/11/22 07:29 Hgb 17.5 g/dL (11.5-15.3) H 09/11/22 07:29 Hct 51.5 % (37.0-47.0) H 09/11/22 07:29 MCV 91.5 fl (81-99) 09/11/22 07:29 MCH 31.1 pg (28.0-34.0) 09/11/22 07:29 MCHC 34.0 g/dL (30.0-36.0) 09/11/22 07:29 RDW 11.7 % (12.1-15.1) L 09/11/22 07:29 Plt Count 533 10^3/cmm (130-400) H 09/11/22 07:29 MPV 10.2 fL (7.4-10.4) 09/11/22 07: Neut % (Auto) 91.3 % 09/11/22 07:29 Lymph % (Auto) 3.7 % 09/11/22 07: Edgar % (Auto) 4.0 % 09/11/22 07: Eos % (Auto) 0.0 % 09/11/22 07: Baso % (Auto) 0.4 % 09/11/22 07: Neut # (Auto) 26.08 10^3/uL (1.8-7.7) H 09/11/22 07: Lymph # (Auto) 1.1 10^3/uL (0.8-4.8) 09/11/22 07: Edgar # (Auto) 1.1 10^3/uL (0.2-0.9) H 09/11/22: Eos # (Auto) 0.0 10^3/uL (0.0-0.8) 09/11/22: Baso # (Auto) 0.1 10^3/uL (0.0-0.1) 09/11/22 07: Nucleated RBC % (auto) 0 % 09/11/22: Nucleated RBCs # 0.0 /100WBC 09/11/22 07:29 Specimen Type Arterial 09/11/22 09:05 Sample Site Radial, left 09/11/22 09:05 ABG pH 7.39 (7.35-7.45) 09/11/22 09:05 ABG pCO2 20.3 mmHg (35-45) L 09/11/22 09:05 ABG pO2 110.0 mmHg (80.0-100.0) H 09/11/22 09:05 ABG HCO3 12.3 mmol/L (22-26) L 09/11/22 09:05 ABG O2 Saturation 98.8 09/11/22 09:05 ABG Base Excess -9.8 mmol/L (-2.0-2.0) L 09/11/22 09:05 Suhas Test Pos 09/11/22 09:05 A-a O2 Gradient 1.6 mmHg (5-10) L 09/11/22 09:05 Hematocrit 50.5 % (37-47) H 09/11/22 09:05 Hgb O2 Saturation 97.3 % (95-100) 09/11/22 09:05 Carboxyhemoglobin 0.8 %THgb (0.4-20.1) 09/11/22 09:05 Methemoglobin 0.8 % (0.4-1.5) 09/11/22 09:05 Total Hemoglobin 16.5 g/dL (12-16) H 09/11/22 09:05 Sodium 144.0 mmol/L (131-143) H 09/11/22 09:05 Potassium 3.6 mmol/L (3.5-5.0) 09/11/22 09:05 Glucose 194.0 mg/dL (70-115) H 09/11/22 09:05 Ionized Calcium 1.2 mmol/L (1.1-1.4) 09/11/22 09:05 O2 Delivery Device Room air 09/11/22 09:05 FiO2 21.0 % 09/11/22 09:05 [employer]ish [employer] Operator ID Cak 09/11/22 09:05 Sodium 142 mmol/L (136-145) 09/11/22 07:29 Potassium 4.2 mmol/L (3.5-5.1) 09/11/22 07:29 Chloride 101 mmol/L (98-107) 09/11/22 07:29 Carbon Dioxide 16 mmol/L (22-29) L 09/11/22 07:29 Anion Gap 29.2 (5-19) H 09/11/22 07:29 BUN 11 mg/dL (6-20) 09/11/22 07:29 Creatinine 1.2 mg/dL (0.5-0.9) H 09/11/22 07:29 GFR Calculation 55.2 mL/min (90-130) L 09/11/22 07:29 Glucose 203 mg/dL (65-115) H 09/11/22 07:29 Calculated Osmolality 299 mOsm/kg (285-295) H 09/11/22 07:29 Lactic Acid 7.2 mmol/L (0.5-2.2) H* 09/11/22 07:56 Lactic Acid (Sepsis) 7.1 mmol/L (0.5-2.2) H* 09/11/22 09:42 Calcium 10.9 mg/dL (8.5-10.5) H 09/11/22 07:29 Total Bilirubin 0.7 mg/dL (0.15-1.2) 09/11/22 07:29 AST 24 U/L (0-32) 09/11/22 07:29 ALT 25 U/L (0-33) 09/11/22 07:29 Alkaline Phosphatase 97 U/L (35-105) 09/11/22 07:29 Total Protein 9.6 g/dL (6.6-8.7) H 09/11/22 07:29 Albumin 5.7 g/dL (3.5-5.2) H 09/11/22 07:29 Globulin 3.9 g/dL (1.3-4.6) 09/11/22 07:29 Lipase 12 U/L (13-60) L 09/11/22 07:29 HCG, Qual Negative (Negative) 09/11/22 07:29 Urine Color Yellow (Yellow) 09/11/22 09:40 Urine Appearance Clear (CLEAR) 09/11/22 09:40 Urine pH 6.5 (5-7) 09/11/22 09:40 Ur Specific [place] 1.005 (1.005-1.030) 09/11/22 09:40 Urine Protein 1+ (Negative) H 09/11/22 09:40 Urine Glucose (UA) Norm (Normal) 09/11/22 09:40 Urine Ketones 2+ (Negative) H 09/11/22 09:40 Urine Blood 2+ (Negative) H 09/11/22 09:40 Urine Nitrate Negative (Negative) 09/11/22 09:40 Urine Bilirubin Neg (Negative) 09/11/22 09:40 Urine Urobilinogen Norm mg/dL (Negative) 09/11/22 09:40 Ur Leukocyte Esterase Trace (Negative) H 09/11/22 09:40 Urine RBC Rare /hpf (0-2) 09/11/22 09:40 Urine WBC Rare /hpf (0-5) 09/11/22 09:40 Ur Squamous Epith Cells 5-10 /hpf (0-5) H 09/11/22 09:40 Amorphous Sediment Not Reportable 09/11/22 09:40 Urine Bacteria Trace /hpf (NONE) 09/11/22 09:40 Discharge Plan Discharge Patient Disposition: Left Against Medical Advice Clinical Impression: Acute dehydration, Nausea & vomiting Condition: Stable Prescriptions: New Reglan 10 mg tablet 10 mg PO Q6H PRN (Reason: nausea and vomiting) Qty: 20 0RF No Action dicyclomine 20 mg tablet 20 mg PO TID PRN (Reason: abdominal pain) Qty: 20 0RF promethazine 25 mg tablet 25 mg PO Q6H PRN (Reason: nausea and vomiting) Qty: 15 0RF Rx Instructions: 3 doses during day; last dose no later than 4 hr before bedtime prednisone 20 mg tablet 20 mg PO TID Qty: 15 0RF Rx Instructions: 1 p.o. 3 times daily x3 days, 1 p.o. twice daily x2 days, 1 p.o. daily x2 day s Allergy (diphenhydramine) 25 mg tablet 50 mg PO Q6H PRN (Reason: allergy symptoms) Qty: 20 0RF hydrocodone-acetaminophen 5-325 mg tablet 1 tab PO Q6H PRN (Reason: pain) Qty: 14 0RF Keppra 500 mg tablet 500 mg PO Q12H Qty: 60 0RF promethazine 25 mg tablet 25 mg PO TID PRN (Reason: nausea and vomiting) Qty: 20 0RF Rx Instructions: 3 doses during day; last dose no later than 4 hr before bedtime Discharge Diet: Advance as tolerated and Clear Liquid Discharge Activity: Increase activity as tolerated Activity Restrictions/Additional Instructions: Follow-up with medical provider as directed. Take medications as prescribed. Return to the ER or your medical provider if condition worsens. Please read and understand discharge instructions. Thank you for choosing [facility] for your healthcare needs today. Please realize this is an emergency room and that we are providing you with a medical screening exam and this may not be complete and all inclusive of all the testing and or work up that you may need to determine your ailment or severity of your illness. It is very important that you follow up as instructed or that you return to the Emergency Department should you have concerns or if your c ondition changes or worsens in any way. Coding Level of Care Code ED Vocational Education Professional for Chg Fwd Exam Comprehensive Documented by User: Aleksandra Elder MD 09/19/22 08:44 HPI - Nausea/Vomiting/Diarrhea General: Chief complaint: Abdominal Pain Stated complaint: n/v Time Seen by Provider: 09/11/22 07:08 [facility] ED PFS: Medical History No pertinent family history Surgical History History of cholecystectomy Course Vital Signs: Vital signs: Vital Signs Temperature 97.8 F 09/11/22 07:18 Pulse Rate 89 09/11/22 09:51 Respiratory Rate 14 09/11/22 09:51 Blood Pressure 132/83 09/11/22 09:51 Pulse Oximetry 91 09/11/22 09:51 Oxygen Delivery Me thod 09/11/22 09:51 MDM - Nausea/Vomiting/Diarrhea Medical Decision Making Patient is a 22-year-old female comes to the ED with nausea and vomiting. Symptoms started last night. Her stomach got upset and she started getting really nauseous. She then has been having multiple episodes of emesis all last night and throughout the night. She has not been able to sleep much due to the nausea and vomiting. She also reports having some chest tightness and feeling short of breath. Denies any food poisoning. Patient has a multiple people she lives with who her having the same symptoms currently. Vitals are stable. White blood cell count of 28 and anion gap was 29. Creatinine 1.2. Lactic acid level was 7.2. ABG showed a blood pH of 7.39. CT of abdomen pelvis showed some possible colitis but no other symptoms. Patient was given 1 L of fluids and couple doses of Reglan and her nausea did improve. She wanted to go home and I discussed with her multiple times that she needs to stay here to the ED and get further IV fluids and further evaluation to see if her lactic goes down after getting over 2 L of IV fluids. I think most of her symptoms and labs are due to dehydration from excessive vomiting and diarrhea. Patient refused to stay get further IV fluids. I discussed with her to come back immediately if she is having any worsening symptoms. She signed out AMA with a prescription of Reglan for nausea. Follow-up with PCP within the next couple days. Patient understood and agreed with plan. I saw this patient with CAMERON Becerril. The patient is here with vomiting. She had an elevated lactic acid with a normal PH. She was definitely very dehydrated. She did get some fluids here and felt better. She refused further treatment and fluids and wanted to go home - so she was signed out AMA. She understands that she is welcome to return. She has had sick contacts at home with the same symptoms. Aleksandra Elder MD Lab Data 09/11/22 07:29 09/11/22 07:29 Radiology Impressions Chest X-Ray 09/11/22 07:33 IMPRESSION: No acute findings. Abdomen/Pelvis CT 09/11/22 07:46 IMPRESSION: Nonspecific imaging findings, suggestive of colitis. Laboratory Results WBC 28.6 10^3/uL (4.0-10.0) H 09/11/22 07: RBC 5.63 10^6/uL (4.1-5.3) H 09/11/22 07:29 Hgb 17.5 g/dL (11.5-15.3) H 09/11/22 07:29 Hct 51.5 % (37.0-47.0) H 09/11/22 07:29 MCV 91.5 fl (81-99) 09/11/22 07: MCH 31.1 pg (28.0-34.0) 09/11/22 07: MCHC 34.0 g/dL (30.0-36.0) 09/11/22 07:29 RDW 11.7 % (12.1-15.1) L 09/11/22 07:29 Plt Count 533 10^3/cmm (130-400) H 09/11/22 07:29 MPV 10.2 fL (7.4-10.4) 09/11/22 07:29 Neut % (Auto) 91.3 % 09/11/22 07: Lymph % (Auto) 3.7 % 09/11/22 07: Edgar % (Auto) 4.0 % 09/11/22 07: Eos % (Auto) 0.0 % 09/11/22 07:29 Baso % (Auto) 0.4 % 09/11/22 07:29 Neut # (Auto) 26.08 10^3/uL (1.8-7.7) H 09/11/22 07: Lymph # (Auto) 1.1 10^3/uL (0.8-4.8) 09/11/22 07:29 Edgar # (Auto) 1.1 10^3/uL (0.2-0.9) H 09/11/22 07:29 Eos # (Auto) 0.0 10^3/uL (0.0-0.8) 09/11/22 07: Baso # (Auto) 0.1 10^3/uL (0.0-0.1) 09/11/22 07: Nucleated RBC % (auto) 0 % 09/11/22 07: Nucleated RBCs # 0.0 /100WBC 09/11/22 07:29 Specimen Type Arterial 09/11/22 09:05 Sample Site Radial, left 09/11/22 09:05 ABG pH 7.39 (7.35-7.45) 09/11/22 09:05 ABG pCO2 20.3 mmHg (35-45) L 09/11/22 09:05 ABG pO2 110.0 mmHg (80.0-100.0) H 09/11/22 09:05 ABG HCO3 12.3 mmol/L (22-26) L 09/11/22 09:05 ABG O2 Saturation 98.8 09/11/22 09:05 ABG Base Excess -9.8 mmol/L (-2.0-2.0) L 09/11/22 09:05 Suhas Test Pos 09/11/22 09:05 A-a O2 Gradient 1.6 mmHg (5-10) L 09/11/22 09:05 Hematocrit 50.5 % (37-47) H 09/11/22 09:05 Hgb O2 Saturation 97.3 % (95-100) 09/11/22 09:05 Carboxyhemoglobin 0.8 %THgb (0.4-20.1) 09/11/22 09:05 Methemoglobin 0.8 % (0.4-1.5) 09/11/22 09:05 Total Hemoglobin 16.5 g/dL (12-16) H 09/11/22 09:05 Sodium 144.0 mmol/L (131-143) H 09/11/22 09:05 Potassium 3.6 mmol/L (3.5-5.0) 09/11/22 09:05 Glucose 194.0 mg/dL (70-115) H 09/11/22 09:05 Ionized Calcium 1.2 mmol/L (1.1-1.4) 09/11/22 09:05 O2 Delivery Device Room air 09/11/22 09:05 FiO2 21.0 % 09/11/22 09:05 Raw Finish Mill Operator ID Cak 09/11/22 09:05 Sodium 142 mmol/L (136-145) 09/11/22 07:29 Potassium 4.2 mmol/L (3.5-5.1) 09/11/22 07:29 Chloride 101 mmol/L (98-107) 09/11/22 07:29 Carbon Dioxide 16 mmol/L (22-29) L 09/11/22 07:29 Anion Gap 29.2 (5-19) H 09/11/22 07:29 BUN 11 mg/dL (6-20) 09/11/22 07:29 Creatinine 1.2 mg/dL (0.5-0.9) H 09/11/22 07:29 GFR Calculation 55.2 mL/min (90-130) L 09/11/22 07:29 Glucose 203 mg/dL (65-115) H 09/11/22 07:29 Calculated Osmolality 299 mOsm/kg (285-295) H 09/11/22 07:29 Lactic Acid 7.2 mmol/L (0.5-2.2) H* 09/11/22 07:56 Lactic Acid (Sepsis) 7.1 mmol/L (0.5-2.2) H* 09/11/22 09:42 Calcium 10.9 mg/dL (8.5-10.5) H 09/11/22 07:29 Total Bilirubin 0.7 mg/dL (0.15-1.2) 09/11/22 07:29 AST 24 U/L (0-32) 09/11/22 07:29 ALT 25 U/L (0-33) 09/11/22 07:29 Alkaline Phosphatase 97 U/L (35-105) 09/11/22 07:29 Total Protein 9.6 g/dL (6.6-8.7) H 09/11/22 07:29 Albumin 5.7 g/dL (3.5-5.2) H 09/11/22 07:29 Globulin 3.9 g/dL (1.3-4.6) 09/11/22 07:29 Lipase 12 U/L (13-60) L 09/11/22 07:29 HCG, Qual Negative (Negative) 09/11/22 07:29 Urine Color Yellow (Yellow) 09/11/22 09:40 Urine Appearance Clear (CLEAR) 09/11/22 09:40 Urine pH 6.5 (5-7) 09/11/22 09:40 Ur Specific [place] 1.005 (1.005-1.030) 09/11/22 09:40 Urine Protein 1+ (Negative) H 09/11/22 09:40 Urine Glucose (UA) Norm (Normal) 09/11/22 09:40 Urine Ketones 2+ (Negative) H 09/11/22 09:40 Urine Blood 2+ (Negative) H 09/11/22 09:40 Urine Nitrate Negative (Negative) 09/11/22 09:40 Urine Bilirubin Neg (Negative) 09/11/22 09:40 Urine Urobilinogen Norm mg/dL (Negative) 09/11/22 09:40 Ur Leukocyte Esterase Trace (Negative) H 09/11/22 09:40 Urine RBC Rare /hpf (0-2) 09/11/22 09:40 Urine WBC Rare /hpf (0-5) 09/11/22 09:40 Ur Squamous Epith Cells 5-10 /hpf (0-5) H 09/11/22 09:40 Amorphous Sediment Not Reportable 09/11/22 09:40 Urine Bacteria Trace /hpf (NONE) 09/11/22 09:40 Discharge Plan Discharge Patient Disposition: Left Against Medical Advice Clinical Impression: Acute dehydration, Nausea & vomiting Condition: Stable Prescriptions: New Reglan 10 mg tablet 10 mg PO Q6H PRN (Reason: nausea and vomiting) Qty: 20 0RF No Action dicyclomine 20 mg tablet 20 mg PO TID PRN (Reason: abdominal pain) Qty: 20 0RF promethazine 25 mg tablet 25 mg PO Q6H PRN (Reason: nausea and vomiting) Qty: 15 0RF Rx Instructions: 3 doses during day; last dose no later than 4 hr before bedtime prednisone 20 mg tablet 20 mg PO TID Qty: 15 0RF Rx Instructions: 1 p.o. 3 times daily x3 days, 1 p.o. twice daily x2 days, 1 p.o. daily x2 days Allergy (diphenhydramine) 25 mg tablet 50 mg PO Q6H PRN (Reason: allergy symptoms) Qty: 20 0RF hydrocodone-acetaminophen 5-325 mg tablet 1 tab PO Q6H PRN (Reason: pain) Qty: 14 0RF Keppra 500 mg tablet 500 mg PO Q12H Qty: 60 0RF promethazine 25 mg tablet 25 mg PO TID PRN (Reason: nausea and vomiting) Qty: 20 0RF Rx Instructions: 3 doses during day; last dose no later than 4 hr before bedtime Discharge Diet: Advance as tolerated and Clear Liquid Discharge Activity: Increase activity as tolerated Activity Restrictions/Additional Instructions: Follow-up with medical provider as directed. Take medications as prescribed. Return to the ER or your medical provider if condition worsens. Please read and understand discharge instructions. Thank you for choosing [facility] for your healthcare needs today. Please realize this is an emergency room and that we are providing you with a me dical screening exam and this may not be complete and all inclusive of all the testing and or work up that you may need to determine your ailment or severity of your illness. It is very important that you follow up as instructed or that you return to the Emergency Department should you have concerns or if your condition changes or worsens in any way. Coding Level of Care Code ED Vocational Education Professional for Marjan Siddiqi Exam Comprehensive
[2022-09-11 07:40] LABS: Basophils # 0.1 10^3/uL (0.0-0.1); Basophils % 0.4 %; Hematocrit 51.5 % (37.0-47.0); Hemoglobin 17.5 g/dL (11.5-15.3); Lymphocytes # 1.1 10^3/uL (0.8-4.8); Lymphocytes % 3.7 %; Mean Corpuscular Hemoglobin 31.1 pg (28.0-34.0); Mean Corpuscular Volume 91.5 fl (81-99); Mean Platelet Volume 10.2 fL (7.4-10.4); Monocytes # 1.1 10^3/uL (0.2-0.9); Neutrophils # 26.08 10^3/uL (1.8-7.7); Neutrophils % 91.3 %; Nucleated Red Blood Cells % 0 %; Platelet Count 533 10^3/cmm (130-400); Red Blood Count 5.63 10^6/uL (4.1-5.3); Red Cell Distribution Width 11.7 % (12.1-15.1); White Blood Count 28.6 10^3/uL (4.0-10.0)
--- NOTE | 2022-09-11 07:46 | CTR_ITS ---
PROCEDURE INFORMATION: Exam: CT Abdomen And Pelvis With Contrast Exam date and time: 09/11/2022 8:03 AM Age: 22 years old Clinical indication: Nausea and vomiting; Abdominal pain; Generalized; Prior surgery; Surgery type: Gb; Additional info: N/v, [id number] TECHNIQUE: Imaging protocol: Computed tomography of the abdomen and pelvis with contrast. Radiation optimization: All CT scans at this facility use at least one of these dose optimization techniques: automated exposure control; mA and/or kV adjustment per patient size (includes targeted exams where dose is matched to clinical indication); or iterative reconstruction. Contrast material: OMNI 350; Contrast volume: 100 ml; Contrast route: INTRAVENOUS (IV); COMPARISON: CT abdomen pelvis w con* [id number] 08/09/2021 12:07 PM RADIATION DOSE METRICS: Total DLP (mGy-cm): 893.03 FINDINGS: Liver: Normal. No mass. Gallbladder and bile ducts: The gallbladder has been surgically removed. Pancreas: Normal. No ductal dilation. Spleen: Normal. No splenomegaly. Adrenal glands: Normal. No mass. Kidneys and ureters: Normal. No hydronephrosis. Stomach and bowel: There is a non-abnormally distended fluid-filled colon. Slight mucosal thickening of the colon wall is suggested. No surrounding inflammatory changes. No obstruction. Appendix: No evidence of appendicitis. Intraperitoneal space: Unremarkable. No free air. No significant fluid collection. Vasculature: Unremarkable. No abdominal aortic aneurysm. Lymph nodes: Unremarkable. No enlarged lymph nodes. Urinary bladder: Unremarkable as visualized. Reproductive: Unremarkable as visualized. Bones/joints: Unremarkable. No acute fracture. Soft tissues: Unremarkable. CT/CT abdomen pelvis w con* [id number] IMPRESSION: Nonspecific imaging findings, suggestive of colitis.
[2022-09-11 07:48] LABS: HCG, Serum Qual Negative (Negative)
[2022-09-11 07:55] LABS: Alanine Aminotransferase 25 U/L (0-33); Albumin Level 5.7 g/dL (3.5-5.2); Alkaline Phosphatase 97 U/L (35-105); Anion Gap 29.2 (5-19); Aspartate Amino Transferase 24 U/L (0-32); Blood Urea Nitrogen 11 mg/dL (6-20); Calcium 10.9 mg/dL (8.5-10.5); Carbon Dioxide 16 mmol/L (22-29); Chloride 101 mmol/L (98-107); Globulin 3.9 g/dL (1.3-4.6); Glomerular Filtration Rate 55.2 mL/min (90-130); Glucose 203 mg/dL (65-115); Lipase 12 U/L (13-60); Osmolality Calculated 299 mOsm/kg (285-295); Potassium 4.2 mmol/L (3.5-5.1); Sodium 142 mmol/L (136-145); Total Bilirubin 0.7 mg/dL (0.15-1.2); Total Protein 9.6 g/dL (6.6-8.7)
[2022-09-11] MEDS: iohexol 350 mg/mL 500 mL Btl (per mL) IV (08:09)
[2022-09-11 08:52] LABS: Lactic Sepsis W/Reflex 7.2 mmol/L (0.5-2.2)
[2022-09-11 09:14] LABS: Reflex Lactate Order REFLEX LACTIC ORDERD
[2022-09-11 09:17] LABS: ABG PCO2 20.3 mmHg (35-45); ABG PH Result 7.39 (7.35-7.45); Alveolar-Arterial Oxygen Gradi 1.6 mmHg (5-10); Arterial Blood Gas Hematocrit 50.5 % (37-47); Base Excess ABG -9.8 mmol/L (-2.0-2.0); Blood Gas Allen Test Pos; Blood Gas Operator Identificat CAK; Blood Gas Sample Site Radial, left; Blood Gas Sample Type Arterial; Carboxyhemoglobin 0.8 %THgb (0.4-20.1); HCO3 ABG 12.3 mmol/L (22-26); HGB O2 Sat 97.3 % (95-100); Ionized Calcium Level - ABG 1.2 mmol/L (1.1-1.4); Methemoglobin 0.8 % (0.4-1.5); Oxygen Device ROOM AIR; Oxygen Saturation ABG 98.8; Potassium Level - ABG 3.6 mmol/L (3.5-5.0); Total Hemoglobin 16.5 g/dL (12-16)
[2022-09-11 09:51] VITALS: BP 132/83; PULSE 89; RESP 14; O2SAT 91
[2022-09-11 09:52] LABS: Add Urine Microscopic? YES; Bilirubin Urine Neg (Negative); Blood Urine 2+ (Negative); Glucose Urine UA Norm (Normal); Ketones Urine 2+ (Negative); Leukocyte Esterase Urine Trace (Negative); Nitrate Urine Negative (Negative); Protein Urine 1+ (Negative); Specific Gravity, Urine 1.005 (1.005-1.030); Urine Appearance Clear (CLEAR); Urine Color Yellow (Yellow); Urobilinogen Urine Norm (Negative); pH Urine 6.5 (5-7)
[2022-09-11 09:53] LABS: Add Urine Culture? No; Bacteria Urine TRACE /hpf; RBC Urine RARE /hpf (0-2); WBC Urine RARE /hpf (0-5)
[2022-09-11 10:47] LABS: Lactic Acid level (Lactate) 7.1 mmol/L (0.5-2.2)
== END 2022-09-11 10:50 | disposition left against medical advice (07) ==
PROVIDERS: Emergency Provider Physician Assistant
DX: R11.2 Nausea with vomiting, unspecified (principal); E86.0 Dehydration; Z53.21 Procedure and treatment not carried out due to patient leaving prior to being seen by health care provider
CPT/HCPCS: 36415; 36600; 71045; 74177; 80051; 80053; 81001; 82330; 82805; 83605; 83690; 84703; 85025; 93005; 96374; 96376; 99285; J2765; J7030; Q9967

== ENCOUNTER 2022-09-13 19:03 | Emergency (ER) | payer MEDICAID, SELFPAY ==
[2022-09-13 19:07] VITALS: BP 148/106; PULSE 90; RESP 16; TEMP 36.8; O2SAT 100; BMI 28.3
--- NOTE | 2022-09-13 19:09 | CTR_ITS ---
PROCEDURE INFORMATION: Exam: CT Head Without Contrast Exam date and time: 09/13/2022 7:26 PM Age: 22 years old Clinical indication: Condition or disease; Convulsions or seizures; Unspecified; Additional info: Seizure TECHNIQUE: Imaging protocol: Computed tomography of the head without contrast. Radiation optimization: All CT scans at this facility use at least one of these dose optimization techniques: automated exposure control; mA and/or kV adjustment per patient size (includes targeted exams where dose is matched to clinical indication); or iterative reconstruction. COMPARISON: No relevant prior studies available. RADIATION DOSE METRICS: Total DLP (mGy-cm): 869.88 FINDINGS: Brain: No focal hemorrhage or midline shift is identified. Cerebral ventricles: No ventriculomegaly or evidence of acute hydrocephalus. Paranasal sinuses: The partially assessed sinuses are grossly clear. Mastoid air cells: Visualized mastoid air cells are well aerated. Bones/joints: No displaced skull fracture is noted. Soft tissues: Skull base soft tissue air. CT/CT head wo con* [id number] IMPRESSION: 1. No focal hemorrhage or midline shift. 2. At the skull base, there is a large amount of diffuse soft tissue air, which is of uncertain significance. This may be due to neck or chest pathology. Advise correlation.
--- NOTE | 2022-09-13 19:16 | W.ED.SEIZURE ---
HPI - Seizure General: Chief Complaint: Seizure Stated Complaint: SEIZURE Time Seen by Provider: 09/13/22 19:05 Source: patient and EMS Mode of arrival: EMS Limitations: no limitations History of Present Illness: HPI Narrative: 22-year-old female states that she had a seizure earlier today she has had seizures in the past but states did not years ago and she is not on any meds currently she was postictal she is now awake able answer all my questions has no complaints at this time. Associated symptoms: Deny chest pain, chills or fever(s) Review of Systems Const: Denies: fever(s), chills, body aches or change in appetite Eyes: Denies: blurry vision or eye discomfort ENMT: Denies: throat pain or dental pain Card: Denies: chest pain Resp: Denies: dyspnea GI: Denies: abdominal pain, nausea, vomiting or diarrhea : Denies: dysuria Musc: Denies: neck pain or back pain Skin/Breast: Denies: rash Neuro: Reports: seizure-like activity Psych: Denies: depression Ashvin/Lymph: Denies: easy bruising All/Imm: Denies: urticaria PFSH ED PFSH: Medical History No pertinent family history Surgical History History of cholecystectomy Social History (Updated 09/13/22 @ 19:16 by Neno Russell MD) Substance/Drug Use: never Female Reproductive History: Date of last menstrual period: 02/19/22 Physical Exam Const: COMMON NORMALS: no acute distress, patient oriented x3 and healthy appearing HENMT: COMMON NORMALS: normocephalic and atraumatic HEAD & SCALP: normocephalic and atraumatic Eye: COMMON NORMALS: Equal, round and reactive pupils present and EOMs intact bilaterally PUPIL: Yes Equal, round and reactive pupils present Neck/C-Spine: COMMON NORMALS: full ROM and supple Chest: COMMONS NORMALS: normal inspection of the chest and normal palpation of entire chest wall Resp: COMMON NORMALS: normal respiratory effort, No retractions, No use of accessory muscles and clear to auscultation bilaterally AUSCULTATION: clear to auscultation bilaterally Cardio: COMMON NORMALS: regular rate, regular rhythm and No murmurs present (Cardio) RATE: regular rate RHYTHM: regular rhythm GI: COMMON NORMALS: Normal to inspection, nondistended, normoactive bowel sounds present, Soft to palpation, non-tender and no masses PALPATION: Yes Soft to palpation Extremity: COMMON NORMALS: normal to inspection and full ROM Neuro: COMMON NORMALS: patient oriented x3, moves all extremities and no focal motor deficits Psych: COMMON NORMALS: mental status grossly normal, Normal thought process present and cooperative THOUGHT PROCESS: Normal thought process present Skin: COMMON NORMALS: no rashes or lesions noted and no wounds GENERAL SKIN EXAM: no rashes or lesions noted Course Vital Signs: Vital signs: Vital Signs Temperature 98.2 F 09/13/22 19:07 Pulse Rate 94 09/13/22 21:39 Respiratory Rate 22 H 09/13/22 21:39 Blood Pressure 114/82 09/13/22 21:39 Pulse Oximetry 100 09/13/22 21:39 Oxygen Delivery Me thod 09/13/22 21:39 MDM - Seizure MDM Narrative Medical decision making narrative: Patient presents here after a seizure she feels much improved here. She did have pneumomediastinum she had likely Valsalva and when she sees her causing this it is small I did speak to pulmonology Dr. Barcenas who reviewed images who does not feel she needs to be admitted she has no complaints here besides mild chest pain she has no hypoxia she wants to go home I feel she is stable for discharge she is to have repeat x-ray in 5 to 7 days return if worsening she understands agrees to plan. Lab Data 09/13/22 18:54 09/13/22 18:54 Labs: Radiology Impressions Head CT 09/13/22 19:09 IMPRESSION: 1. No focal hemorrhage or midline shift. 2. At the skull base, there is a large amount of diffuse soft tissue air, which is of uncertain significance. This may be due to neck or chest pathology. Advise correlation. Cervical Spine CT 09/13/22 19:49 IMPRESSION: 1. No acute cervical spine fracture or subluxation. 2. Severe bilateral neck diffuse soft tissue air. Known pneumomediastinum. Chest CT pending, see that report. THIS REPORT CONTAINS FINDINGS THAT MAY BE CRITICAL TO PATIENT CARE. The findings were verbally communicated via telephone conference at 8:41 PM ROLLER MILL TENDER on 09/13/[address] Russell. The findings were acknowledged and understood. Chest X-Ray 09/13/22 19:49 IMPRESSION: 1. Base of neck soft tissue air with pneumomediastinum. 2. No focal pneumonia. 3. Recommend CT chest. 4. Call to provider has been initiated. ADDENDUM: 09/13/222042 THIS REPORT CONTAINS FINDINGS THAT MAY BE CRITICAL TO PATIENT CARE. The findings were verbally communicated via telephone conference at 8:41 PM ROLLER MILL TENDER on 09/13/[address] Russell. The findings were acknowledged and understood. Chest CTA 09/13/22 20:13 IMPRESSION: 1. No pulmonary embolism or pneumonia. 2. Mediastinal and neck emphysema without abnormal fluid collection. In the absence of barotrauma or recent procedure, this is most likely due to a ruptured small airway. Most likely will resolve with conservative measures. Laboratory Results WBC 11.5 10^3/uL (4.0-10.0) H 09/13/22 18:54 RBC 5.21 10^6/uL (4.1-5.3) 09/13/22 18:54 Hgb 16.3 g/dL (11.5-15.3) H 09/13/22 18:54 Hct 46.4 % (37.0-47.0) 09/13/22 18:54 MCV 89.1 fl (81-99) 09/13/22 18:54 MCH 31.3 pg (28.0-34.0) 09/13/22 18:54 MCHC 35.1 g/dL (30.0-36.0) 09/13/22 18:54 RDW 11.9 % (12.1-15.1) L 09/13/22 18:54 Plt Count 462 10^3/cmm (130-400) H 09/13/22 18:54 MPV 10.0 fL (7.4-10.4) 09/13/22 18:54 Neut % (Auto) 74.0 % 09/13/22 18:54 Lymph % (Auto) 15.2 % 09/13/22 18:54 Ritchie % (Auto) 9.8 % 09/13/22 18:54 Eos % (Auto) 0.1 % 09/13/22 18:54 Baso % (Auto) 0.6 % 09/13/22 18:54 Neut # (Auto) 8.50 10^3/uL (1.8-7.7) H 09/13/22 18:54 Lymph # (Auto) 1.7 10^3/uL (0.8-4.8) 09/13/22 18:54 Ritchie # (Auto) 1.1 10^3/uL (0.2-0.9) H 09/13/22 18:54 Eos # (Auto) 0.0 10^3/uL (0.0-0.8) 09/13/22 18:54 Baso # (Auto) 0.1 10^3/uL (0.0-0.1) 09/13/22 18:54 Nucleated RBC % (auto) 0 % 09/13/22 18:54 Nucleated RBCs # 0.0 /100WBC 09/13/22 18:54 Sodium 136 mmol/L (136-145) 09/13/22 18:54 Potassium 3.3 mmol/L (3.5-5.1) L 09/13/22 18:54 Chloride 98 mmol/L (98-107) 09/13/22 18:54 Carbon Dioxide 22 mmol/L (22-29) 09/13/22 18:54 Anion Gap 19.3 (5-19) H 09/13/22 18:54 BUN 16 mg/dL (6-20) 09/13/22 18:54 Creatinine 0.9 mg/dL (0.5-0.9) 09/13/22 18:54 GFR Calculation 76.9 mL/min (90-130) L 09/13/22 18:54 Glucose 104 mg/dL (65-115) 09/13/22 18:54 Calculated Osmolality 283 mOsm/kg (285-295) L 09/13/22 18:54 Calcium 10.5 mg/dL (8.5-10.5) 09/13/22 18:54 Total Bilirubin 1.1 mg/dL (0.15-1.2) 09/13/22 18:54 AST 38 U/L (0-32) H 09/13/22 18:54 ALT 33 U/L (0-33) 09/13/22 18:54 Alkaline Phosphatase 81 U/L (35-105) 09/13/22 18:54 Total Protein 8.7 g/dL (6.6-8.7) 09/13/22 18:54 Albumin 5.3 g/dL (3.5-5.2) H 09/13/22 18:54 Globulin 3.4 g/dL (1.3-4.6) 09/13/22 18:54 HCG, Qual Negative (Negative) 09/13/22 18:54 Discharge Plan Discharge Patient Disposition: Home Clinical Impression: Generalized seizure, Pneumomediastinum Prescriptions: New hydrocodone-acetaminophen 5-325 mg tablet 1 tab PO Q6H PRN (Reason: pain) Qty: 14 0RF Keppra 500 mg tablet 500 mg PO Q12H Qty: 60 0RF promethazine 25 mg tablet 25 mg PO TID PRN (Reason: nausea and vomiting) Qty: 20 0RF Rx Instructions: 3 doses during day; last dose no later than 4 hr before bedtime No Action dicyclomine 20 mg tablet 20 mg PO TID PRN (Reason: abdominal pain) Qty: 20 0RF promethazine 25 mg tablet 25 mg PO Q6H PRN (Reason: nausea and vomiting) Qty: 15 0RF Rx Instructions: 3 doses during day; last dose no later than 4 hr before bedtime prednisone 20 mg tablet 20 mg PO TID Qty: 15 0RF Rx Instructions: 1 p.o. 3 times daily x3 days, 1 p.o. twice daily x2 days, 1 p.o. daily x2 days Allergy (diphenhydramine) 25 mg tablet 50 mg PO Q6H PRN (Reason: allergy symptoms) Qty: 20 0RF Reglan 10 mg tablet 10 mg PO Q6H PRN (Reason: nausea and vomiting) Qty: 20 0RF Discharge Orders: Discharge ED (Routine); Ordered 09/13/22 Ordered By: Neno Russell Referrals: Nataly Charles MD [Physician] - 1-3 days Datar,Spencer Ambrosio MD [Physician] - 1-3 days Discharge Diet: Advance as tolerated Discharge Activity: Resume usual activity Patient Instructions: Opioid Safety, Seizures Coding Level of Care Code ED Sharepoint Net Developer for Chg Fwd Exam Comprehensive
[2022-09-13 19:17] LABS: Basophils # 0.1 10^3/uL (0.0-0.1); Basophils % 0.6 %; Eosinophils % 0.1 %; Hematocrit 46.4 % (37.0-47.0); Hemoglobin 16.3 g/dL (11.5-15.3); Lymphocytes # 1.7 10^3/uL (0.8-4.8); Lymphocytes % 15.2 %; Mean Corpuscular HGB Conc 35.1 g/dL (30.0-36.0); Mean Corpuscular Hemoglobin 31.3 pg (28.0-34.0); Mean Corpuscular Volume 89.1 fl (81-99); Monocytes # 1.1 10^3/uL (0.2-0.9); Monocytes % 9.8 %; Nucleated Red Blood Cells % 0 %; Platelet Count 462 10^3/cmm (130-400); Red Blood Count 5.21 10^6/uL (4.1-5.3); Red Cell Distribution Width 11.9 % (12.1-15.1); White Blood Count 11.5 10^3/uL (4.0-10.0)
[2022-09-13 19:26] LABS: HCG, Serum Qual Negative (Negative)
[2022-09-13 19:33] LABS: Alanine Aminotransferase 33 U/L (0-33); Albumin Level 5.3 g/dL (3.5-5.2); Alkaline Phosphatase 81 U/L (35-105); Anion Gap 19.3 (5-19); Aspartate Amino Transferase 38 U/L (0-32); Blood Urea Nitrogen 16 mg/dL (6-20); Calcium 10.5 mg/dL (8.5-10.5); Carbon Dioxide 22 mmol/L (22-29); Chloride 98 mmol/L (98-107); Globulin 3.4 g/dL (1.3-4.6); Glomerular Filtration Rate 76.9 mL/min (90-130); Glucose 104 mg/dL (65-115); Osmolality Calculated 283 mOsm/kg (285-295); Potassium 3.3 mmol/L (3.5-5.1); Sodium 136 mmol/L (136-145); Total Bilirubin 1.1 mg/dL (0.15-1.2); Total Protein 8.7 g/dL (6.6-8.7)
--- NOTE | 2022-09-13 19:49 | XRR_ITS ---
PROCEDURE INFORMATION: Exam: XR Chest Exam date and time: 09/13/2022 7:59 PM Age: 22 years old Clinical indication: Shortness of breath; Additional info: SOB, s/ p seizure TECHNIQUE: Imaging protocol: Radiologic exam of the chest. Views: 1 view. COMPARISON: CR (CHEST, ) 09/11/2022 7:55 AM FINDINGS: Lungs: Unremarkable. No consolidation. Pleural spaces: Unremarkable. No pleural effusion. No pneumothorax. Heart/Mediastinum: The heart is normal size. There is evidence of pneumomediastinum. Minimal pneumopericardium. Bones/joints: Unremarkable. Soft tissues: Base of neck soft tissue air. XR/XR chest 1V portable [id number] IMPRESSION: 1. Base of neck soft tissue air with pneumomediastinum. 2. No focal pneumonia. 3. Recommend CT chest. 4. Call to provider has been initiated.
--- NOTE | 2022-09-13 19:49 | CTR_ITS ---
PROCEDURE INFORMATION: Exam: CT Cervical Spine Without Contrast Exam date and time: 09/13/2022 8:03 PM Age: 22 years old Clinical indication: Patient HX: Witnessed seizure. C/O neck pain. ; Additional info: Fall TECHNIQUE: Imaging protocol: Computed tomography of the cervical spine without contrast. Radiation optimization: All CT scans at this facility use at least one of these dose optimization techniques: automated exposure control; mA and/or kV adjustment per patient size (includes targeted exams where dose is matched to clinical indication); or iterative reconstruction. COMPARISON: CT head wo con* [id number] 09/13/2022 7:26 PM RADIATION DOSE METRICS: Total DLP (mGy-cm): 136.87 FINDINGS: Bones/joints: No acute fracture. Normal alignment. No significant disc protrusion. No severe spinal canal stenosis. Left 1st rib vascular channel artifact. Lungs: Pneumomediastinum. This is known clinically. Chest CT pending. Soft tissues: Severe diffuse soft tissue air. CT/CT cervical spin wo con* [id number] IMPRESSION: 1. No acute cervical spine fracture or subluxation. 2. Severe bilateral neck diffuse soft tissue air. Known pneumomediastinum. Chest CT pending, see that report. THIS REPORT CONTAINS FINDINGS THAT MAY BE CRITICAL TO PATIENT CARE. The findings were verbally communicated via telephone conference at 8:41 PM STAMP CLERK on 09/13/[address] Russell. The findings were acknowledged and understood.
--- NOTE | 2022-09-13 20:13 | CTR_ITS ---
PROCEDURE INFORMATION: Exam: CTA Chest With Contrast Exam date and time: 09/13/2022 8:21 PM Age: 22 years old Clinical indication: Other: Subcu air; Patient HX: Subcutaneous air seen on cervical scan extending down to apices. ; Additional info: Pneumomediastinum TECHNIQUE: Imaging protocol: Computed tomographic angiography of the chest with contrast. 3D rendering (Not supervised by radiologist): MIP and/or 3D reconstructed images were created by the technologist. Radiation optimization: All CT scans at this facility use at least one of these dose optimization techniques: automated exposure control; mA and/or kV adjustment per patient size (includes targeted exams where dose is matched to clinical indication); or iterative reconstruction. Contrast material: OMNI 350; Contrast volume: 61 ml; Contrast route: INTRAVENOUS (IV); COMPARISON: CR (CHEST, ) 09/13/2022 7:59 PM RADIATION DOSE METRICS: Total DLP (mGy-cm): 376.65 FINDINGS: Pulmonary arteries: Overall exam quality is good for evaluating the pulmonary arteries. There are no intraluminal filling defects to indicate pulmonary embolism. Aorta: The thoracic aorta is unremarkable although the ascending aorta is somewhat blurred by pulsation artifact. Lungs: There is a sub cm hazy opacity in the right lower lobe, probably incidental. No pneumonia or mass. Next and the esophagus is decompressed and unremarkable. Next and no upper abdominal free air fluid. The trachea and bronchi are patent. Pleural spaces: No pneumothorax or pleural fluid. Heart: Unremarkable. No cardiomegaly. No pericardial effusion. Mediastinal space: Residual thymus should be incidental at the patient's age. Lymph nodes: Unremarkable. No enlarged lymph nodes. Bones/joints: No significant bony findings. Soft tissues: Mediastinal and neck emphysema extends to the gastroesophageal junction and partially around the heart. There is no associated abnormal fluid collection. CT/CT angio chest PE protcl [id number] IMPRESSION: 1. No pulmonary embolism or pneumonia. 2. Mediastinal and neck emphysema without abnormal fluid collection. In the absence of barotrauma or recent procedure, this is most likely due to a ruptured small airway. Most likely will resolve with conservative measures.
[2022-09-13] MEDS: iohexol 350 mg/mL 500 mL Btl (per mL) IV (20:23)
[2022-09-13] MEDS: promethazine 25 mg/mL SDV 1 mL IM (20:54)
[2022-09-13] MEDS: morphine 4 mg/mL SDV 1 mL IVP (21:02)
[2022-09-13 21:39] VITALS: BP 114/82; PULSE 94; RESP 22; O2SAT 100
[2022-09-13 21:58] VITALS: BP 114/82; PULSE 95; RESP 22; O2SAT 100
--- NOTE | 2022-09-14 10:37 | DCPLANNER ---
Addendum entered by Yasmine Sotelo 10/20/22 08:01: This appointment was rescheduled Addendum entered by Yasmine Sotelo 09/16/22 14:09: Patient has a follow up appointment scheduled for Wednesday, October 05, 2022 at 11:[address] Manzo, at pulmonology at [facility]. Clinic will call patient with appointment information. Original Note: hotel operations manager had message to schedule a follow up appointment for patient with pulmonology. hotel operations manager sent patients information to the front office staff at [facility]. Patients information will be printed and reviewed. Clinic will call patient with appointment information.
--- NOTE | 2022-09-14 10:43 | DCPLANNER ---
Addendum entered by Yasmine Sotelo 11/09/22 08:48: Patient had a follow up appointment scheduled with neurology - patient did attend appointment Addendum entered by Yasmine Sotelo 09/16/22 14:12: Patient has a follow up appointment scheduled for Tuesday, November 08, 2022 at 12:20 with at neurology. Clinic will call patient with appointment information. Original Note: casino cashier manager had message to schedule a follow up appointment for patient with neurology. casino cashier manager sent patients information to the front office staff at neurology. Patients information will be printed and reviewed. Clinic will call patient with appointment information.
== END 2022-09-13 21:40 | disposition home or self-care (01) ==
PROVIDERS: Emergency Provider Emergency Medicine
DX: J98.2 Interstitial emphysema (principal); G40.89 Other seizures
CPT/HCPCS: 70450; 71045; 71275; 72125; 80053; 84703; 85025; 96365; 96372; 96375; 99285; J1953; J2270; J2550; Q9967

== ENCOUNTER → 2022-11-09 14:31 | Outpatient (BNVA) | payer MEDICAID, SELFPAY | PROVIDERS: Visit Provider Internal Medicine Pulmonary Disease | DX: J98.2 Interstitial emphysema (principal) | CPT/HCPCS: 71046 ==

== ENCOUNTER → 2023-02-14 13:00 | Outpatient (BNVA) | payer MEDICAID, SELFPAY | PROVIDERS: Visit Provider Obstetrics & Gynecology | DX: Z01.419 Encounter for gynecological examination (general) (routine) without abnormal findings (principal) | CPT/HCPCS: 83036; 83525; 84443; 88175 ==

== ENCOUNTER → 2023-04-06 08:43 | Outpatient (BNVA) | payer MEDICAID, SELFPAY | PROVIDERS: PCP Family Medicine; Visit Provider Nurse Practitioner Women's Health | DX: N92.6 Irregular menstruation, unspecified (principal) | CPT/HCPCS: 76830 ==

== ENCOUNTER → 2023-06-08 09:00 | Outpatient (BNVA) | payer MEDICAID, SELFPAY | PROVIDERS: PCP Family Medicine; Visit Provider Nurse Practitioner Women's Health | DX: Z00.00 Encounter for general adult medical examination without abnormal findings (principal) | CPT/HCPCS: 84144 ==

== ENCOUNTER 2023-07-12 19:56 | Emergency (ER) | payer MEDICAID, SELFPAY ==
--- NOTE | 2023-07-12 19:58 | ECG_ITS ---
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 Measurements Intervals [place] Rate: 85 P: 43 MN: 137 QRS: 43 QRSD: 99 T: 19 QT: 359 QTc: 427 Interpretive Statements SINUS RHYTHM POSSIBLE LEFT ATRIAL ENLARGEMENT [-0.1mV P-WAVE IN V1/V2] Compared to ECG 09/11/2022 07:41:23 Normal EKG Electronically Signed On 07-14-2023 13:28:56 SKATING RINK MANAGER by Jarvis Bertrand M.D. [id number]
--- NOTE | 2023-07-12 19:58 | XRR_ITS ---
PROCEDURE INFORMATION: Exam: XR Chest Exam date and time: 07/12/2023 8:19 PM Age: 23 years old Clinical indication: Pain; Chest pressure; Additional info: Chest pain TECHNIQUE: Imaging protocol: Radiologic exam of the chest. Views: 1 view. COMPARISON: CR XR chest 2V* [id number] 11/09/2022 2:45 PM FINDINGS: Lungs: No consolidation. Pleural spaces: No large pleural effusion. No pneumothorax. Heart/Mediastinum: Unremarkable cardiomediastinal silhouette. Bones/joints: No acute abnormality. XR/XR chest 1V portable [id number] IMPRESSION: No acute findings.
[2023-07-12 20:01] VITALS: BP 128/93; PULSE 90; RESP 18; TEMP 36.6; O2SAT 100
--- NOTE | 2023-07-12 20:07 | W.ED.CHESTPA ---
HPI - Chest Pain General: Chief Complaint: Chest Pain Stated Complaint: CP Time Seen by Provider: 07/12/23 19:58 History of Present Illness: Patient presents to the ER complaining of chest pain and stomach pain. Patient said is much improved since EMS gave her medicine. EMS gave her 1 nitro, 324 mg aspirin 12.5 mg Phenergan. This Phenergan made her drowsy. Per notes called EMS found patient sitting in the floor lethargic alert and oriented x 2 with complaints of stomach pain and chest pain. Patient states she has had both these pains before. Review of Systems General: Reports: 10 or more systems reviewed and unremarkable except in HPI and below PFSH ED PFSH: Medical History No pertinent family history Surgical History History of cholecystectomy History of tonsillectomy and adenoidectomy Family History Grandmother Colon cancer Diabetes Father Hypertension Denies family history of Ovarian cancer Heart disease Hypercholesteremia Breast cancer Uterine cancer Thyroid disease Stroke Physical Exam Const: COMMON NORMALS: no acute distress, average body habitus, patient oriented x3, no limitations, healthy appearing, alert and well nourished OTHER: Appears drowsy and sleepy but easily arousable HENMT: COMMON NORMALS: normocephalic, atraumatic, hearing grossly normal bilaterally, external ears normal, Normal external nose present and moist oral mucous membranes HEAD & SCALP: normocephalic and atraumatic NOSE: Normal external nose present EXTERNAL EAR: Yes external ears normal Eye: COMMON NORMALS: EOMs intact bilaterally, conjunctivae normal and no scleral icterus CONJUNCTIVA: Yes conjunctivae normal Neck/C-Spine: COMMON NORMALS: full ROM, no lymphadenopathy, supple, no meningeal signs, no JVD and Thyroid normal THYROID: Thyroid normal Chest: COMMONS NORMALS: normal inspection of the chest and normal palpation of entire chest wall Resp: COMMON NORMALS: normal respiratory effort, No retractions, No use of accessory muscles and clear to auscultation bilaterally AUSCULTATION: clear to auscultation bilaterally Cardio: COMMON NORMALS: no JVD, regular rate, regular rhythm, S1 normal heart sound present, S2 normal heart sound present, No gallops present (Cardio), No clicks present (Cardio), No murmurs present (Cardio) and No rub (Cardio) RATE: regular rate RHYTHM: regular rhythm HEART SOUNDS: S1 normal heart sound present and S2 normal heart sound present GI: COMMON NORMALS: Normal to inspection, nondistended, normoactive bowel sounds present, Soft to palpation, non-tender, No hepatosplenomegaly present and no masses PALPATION: Yes Soft to palpation and Yes No hepatosplenomegaly present : COMMON NORMALS: Yes no CVA tenderness BLADDER/KIDNEY EXAM: Yes no CVA tenderness Back/Pelvis: COMMON NORMALS: no CVA tenderness Neuro: COMMON NORMALS: patient oriented x3 SENSORIUM/ORIENTATION: Yes alert MENINGEAL SIGNS: Yes no meningeal signs Course Vital Signs: Vital signs: Vital Signs Temperature 97.8 F 07/12/23 20:01 Pulse Rate 92 07/12/23 23:58 Respiratory Rate 17 07/13/23 00:00 Blood Pressure 146/98 07/12/23 23:58 Pulse Oximetry 98 07/12/23 23:58 Oxygen Delivery Me thod Room Air 07/12/23 23:58 MDM - Chest Pain Medical Decision Making Patient was worked up in a standard chest pain fashion with cardiac enzymes serially EKGs, chest x-ray, lab work that did include urine and urine drug screen. Lab work was essentially unremarkable except white blood cell count of 16.5, urine drug screen showed marijuana, patient is feeling much better now and is less lethargic. Patient be discharged home to follow-up with her PCP for further evaluation testing. Differential Diagnosis Unlikely acute massive pulmonary embolism, acute respiratory failure, acute myocardial infarction, cardiac arrest or sudden cardiac Medical Records I reviewed the patient's medical records. Lab Data I reviewed the patient's lab results. 07/12/23 19:38 07/12/23 19:38 Radiology Impressions Chest X-Ray 07/12/23 19:58 IMPRESSION: No acute findings. Laboratory Results WBC 16.50 10^3/uL (3.29-11.43) H 07/12/23 19:38 RBC 4.41 10^6/uL (3.85-5.65) 07/12/23 19:38 Hgb 14.00 g/dL (11.27-16.99) 07/12/23 19:38 Hct 41.8 % (36-47) 07/12/23 19:38 MCV 94.8 fl (85-98) 07/12/23 19:38 MCH 31.7 pg (27-33) 07/12/23 19:38 MCHC 33.5 g/dL (30-55) 07/12/23 19:38 RDW 12.5 % (12.1-15.1) 07/12/23 19:38 Plt Count 417 10^3/cmm (157-399) H 07/12/23 19:38 MPV 10.8 fL (7.4-10.4) H 07/12/23 19:38 Neut % (Auto) 91.5 % 07/12/23 19:38 Lymph % (Auto) 5.7 % 07/12/23 19:38 [place] % (Auto) 1.9 % 07/12/23 19:38 Eos % (Auto) 0.1 % 07/12/23 19:38 Baso % (Auto) 0.3 % 07/12/23 19:38 Neut # (Auto) 15.11 10^3/uL (1.8-7.7) H 07/12/23 19:38 Lymph # (Auto) 0.9 10^3/uL (0.8-4.8) 07/12/23 19:38 [place] # (Auto) 0.3 10^3/uL (0.2-0.9) 07/12/23 19:38 Eos # (Auto) 0.0 10^3/uL (0.0-0.8) 07/12/23 19:38 Baso # (Auto) 0.1 10^3/uL (0.0-0.1) 07/12/23 19:38 Nucleated RBC % (auto) 0 % 07/12/23 19:38 Nucleated RBCs # 0.0 /100WBC 07/12/23 19:38 Sodium 139 mmol/L (136-145) 07/12/23 19:38 Potassium 4.0 mmol/L (3.5-5.1) 07/12/23 19:38 Chloride 99 mmol/L (98-107) 07/12/23 19:38 Carbon Dioxide 20 mmol/L (22-29) L 07/12/23 19:38 Anion Gap 24.0 (5-19) H 07/12/23 19:38 BUN 6 mg/dL (6-20) 07/12/23 19:38 Creatinine 0.7 mg/dL (0.5-0.9) 07/12/23 19:38 GFR Calculation 102.0 mL/min (90-130) 07/12/23 19:38 Glucose 124 mg/dL (65-115) H 07/12/23 19:38 Calculated Osmolality 287 mOsm/kg (285-295) 07/12/23 19:38 Calcium 9.9 mg/dL (8.5-10.5) 07/12/23 19:38 Magnesium 1.8 mg/dL (1.7-2.3) 07/12/23 19:38 Total Bilirubin 0.4 mg/dL (0.15-1.2) 07/12/23 19:38 AST 22 U/L (0-32) 07/12/23 19:38 ALT 64 U/L (0-33) H 07/12/23 19:38 Alkaline Phosphatase 86 U/L (35-105) 07/12/23 19:38 Troponin T Baseline < 6 ng/L (0-10) 07/12/23 19:38 Troponin T 120 Minute < 6.0 ng/L (0-10) 07/12/23 21:55 Delta Troponin T 0 ABS# (0-10) 07/12/23 21:55 Troponin T Hi Sens 6Hr 6.00 ng/L (0-10) 07/13/23 00:38 Total Protein 7.9 g/dL (6.6-8.7) 07/12/23 19:38 Albumin 4.6 g/dL (3.5-5.2) 07/12/23 19:38 Globulin 3.3 g/dL (1.3-4.6) 07/12/23 19:38 Lipase 17 U/L (13-60) 07/12/23 19:38 HCG, Qual Negative (Negative) 07/12/23 23:41 Urine Color Yellow (Yellow) 07/12/23 23:41 Urine Appearance Cloudy (CLEAR) A 07/12/23 23:41 Urine pH 6.5 (5-7) 07/12/23 23:41 Ur Specific [place] 1.020 (1.005-1.030) 07/12/23 23:41 Urine Protein Neg (Negative) 07/12/23 23:41 Urine Glucose (UA) 2+ (Normal) H 07/12/23 23:41 Urine Ketones Negative (Negative) 07/12/23 23:41 Urine Blood 3+ (Negative) H 07/12/23 23:41 Urine Nitrate Negative (Negative) 07/12/23 23:41 Urine Bilirubin Neg (Negative) 07/12/23 23:41 Urine Urobilinogen Norm mg/dL (Negative) 07/12/23 23:41 Ur Leukocyte Esterase Trace (Negative) H 07/12/23 23:41 Urine RBC 0-4 /hpf (0-2) H 07/12/23 23:41 Urine WBC 5-10 /hpf (0-5) H 07/12/23 23:41 Ur Squamous Epith Cells 40-55 /hpf (0-5) H 07/12/23 23:41 Amorphous Sediment Not Reportable 07/12/23 23:41 Urine Bacteria 2+ /hpf (NONE) H 07/12/23 23:41 Urine Mucus 3+ /hpf 07/12/23 23:41 Urine Opiates Screen Negative ng/mL (Negative) 07/12/23 23:41 Ur Barbiturates Screen Negative ng/mL (Negative) 07/12/23 23:41 Ur Phencyclidine Scrn Negative ng/mL (Negative) 07/12/23 23:41 Ur Amphetamines Screen Negative ng/mL (Negative) 07/12/23 23:41 U Benzodiazepines Scrn Negative ng/mL (Negative) 07/12/23 23:41 Urine Cocaine Screen Negative ng/mL (Negative) 07/12/23 23:41 U Marijuana (THC) Screen Positive ng/mL (Negative) H 07/12/23 23:41 All radiology interpretation(s) finalized by discharge EKG Data EKG 1: I personally reviewed and interpreted this EKG as follows: EKG interpretation date: 07/12/23 EKG interpretation time: 19:58 Prior EKG tracings: not available for review Interpretation: EKG showed ventricular rate 85 bpm, [place] interval 137, QRS duration 99, QTc of 401, sinus rhythm, no ST-T wave changes EKG 2: I personally reviewed and interpreted this EKG as follows: EKG interpretation date: 07/12/23 EKG interpretation time: 21:40 Prior EKG tracings: available for review Interpretation: EKG showed ventricular rate 56 beats minute, [place] interval 135, QRS duration 83, QTc of 397, sinus bradycardia with sinus arrhythmia, Discharge Plan Discharge Patient Disposition: Home Clinical Impression: Chest pain, non-cardiac, Substance abuse Condition: Stable Prescriptions: No Action (DME) extrernal heel lift to the left 2.5 cm with orthopedic shoes See Rx Instructions .Route .MEDSUPPLY Qty: 1 0RF Rx Instructions: As directed by [facility] Paulina 150-35 mcg/24 hr patch weekly 1 patch transdermal Q7D Qty: 3 0RF Rx Instructions: apply once weekly for 3 weeks of a 4-week cycle Discharge Orders: Discharge ED (Routine); Ordered 07/13/23 Ordered By: Santana Hammond Referrals: Sumit Branham MD [Primary Care Provider] - 1 week Patient Instructions: Chest Pain - Noncardiac Activity Restrictions/Additional Instructions: All of your lab work came back to show that this chest pain is noncardiac in nature. Your urine drug screen did show You had THC in your system. This is thought to be the reason for your altered mental status. Please limit your use of THC containing products. 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
[2023-07-12 20:18] LABS: Basophils # 0.1 10^3/uL (0.0-0.1); Basophils % 0.3 %; Eosinophils % 0.1 %; Hematocrit 41.8 % (36-47); Lymphocytes # 0.9 10^3/uL (0.8-4.8); Lymphocytes % 5.7 %; Mean Corpuscular HGB Conc 33.5 g/dL (30-55); Mean Corpuscular Hemoglobin 31.7 pg (27-33); Mean Corpuscular Volume 94.8 fl (85-98); Mean Platelet Volume 10.8 fL (7.4-10.4); Monocytes # 0.3 10^3/uL (0.2-0.9); Monocytes % 1.9 %; Neutrophils # 15.11 10^3/uL (1.8-7.7); Neutrophils % 91.5 %; Nucleated Red Blood Cells % 0 %; Platelet Count 417 10^3/cmm (157-399); Red Blood Count 4.41 10^6/uL (3.85-5.65); Red Cell Distribution Width 12.5 % (12.1-15.1)
[2023-07-12 20:38] LABS: Troponin(5th) Baseline < 6 ng/L (0-10)
[2023-07-12 20:39] LABS: Alanine Aminotransferase 64 U/L (0-33); Albumin Level 4.6 g/dL (3.5-5.2); Alkaline Phosphatase 86 U/L (35-105); Aspartate Amino Transferase 22 U/L (0-32); Blood Urea Nitrogen 6 mg/dL (6-20); Calcium 9.9 mg/dL (8.5-10.5); Carbon Dioxide 20 mmol/L (22-29); Chloride 99 mmol/L (98-107); Creatinine Clr Calc Pharmacy 151.7662; Globulin 3.3 g/dL (1.3-4.6); Glucose 124 mg/dL (65-115); Lipase 17 U/L (13-60); Magnesium 1.8 mg/dL (1.7-2.3); Osmolality Calculated 287 mOsm/kg (285-295); Sodium 139 mmol/L (136-145); Total Bilirubin 0.4 mg/dL (0.15-1.2); Total Protein 7.9 g/dL (6.6-8.7)
[2023-07-12 21:01] VITALS: BP 142/94; PULSE 59; O2SAT 98
--- NOTE | 2023-07-12 21:58 | ECG_ITS ---
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 Measurements Intervals [place] Rate: 56 P: 28 NV: 135 QRS: 22 QRSD: 83 T: 14 QT: 404 QTc: 393 Interpretive Statements SINUS BRADYCARDIA WITH SINUS ARRHYTHMIA Compared to ECG 09/11/2022 07:41:23 Normal EKG Electronically Signed On 07-14-2023 13:37:53 [employer] by Jarvis Bertrand M.D. [id number]
[2023-07-12 22:35] LABS: Troponin 5 2HR < 6.0 ng/L (0-10); Troponin 5 2HR Delta 0 ABS# (0-10)
[2023-07-12 23:58] VITALS: BP 146/98; PULSE 92; RESP 16; O2SAT 98
[2023-07-13] VITALS: RESP 17
[2023-07-13 00:29] LABS: HCG Qualitative Urine. Negative (Negative)
[2023-07-13 00:30] LABS: Amphetamines Screen Urine Negative (Negative); Barbiturates Screen Urine Negative (Negative); Benzodiazepines Screen Urine Negative (Negative); Cocaine Screen Urine Negative (Negative); Opiate Screen Urine Negative (Negative); PCP Screen Urine Negative (Negative); THC Screen Urine Positive (Negative)
[2023-07-13 00:32] LABS: Add Urine Culture? No; Add Urine Microscopic? YES; Bacteria Urine 2+ /hpf; Bilirubin Urine Neg (Negative); Blood Urine 3+ (Negative); Glucose Urine UA 2+ (Normal); Ketones Urine Negative (Negative); Leukocyte Esterase Urine Trace (Negative); Mucus Urine 3+ /hpf; Nitrate Urine Negative (Negative); Protein Urine Neg (Negative); RBC Urine 0-4 /hpf (0-2); Squamous Epithelial Cell Urine 40-55 /hpf (0-5); Urine Appearance Cloudy (CLEAR); Urine Color Yellow (Yellow); Urobilinogen Urine Norm (Negative); pH Urine 6.5 (5-7)
[2023-07-13 01:13] LABS: Troponin 5 6HR < 6.0 ng/L (0-10); Troponin 5 6HR Delta 0 ng/L (0-12)
[2023-07-13 01:39] VITALS: BP 143/101; PULSE 101; RESP 20; O2SAT 98
[2023-07-13 01:46] VITALS: BP 139/91; PULSE 70; RESP 20; O2SAT 100
[2023-07-13] MEDS: promethazine 25 mg Tablet 12.5 MG PO (01:46)
== END 2023-07-13 01:53 | disposition home or self-care (01) ==
PROVIDERS: Emergency Provider Emergency Medicine; PCP Family Medicine
DX: R07.89 Other chest pain (principal); F12.10 Cannabis abuse, uncomplicated
CPT/HCPCS: 36415; 71045; 80053; 80306; 81001; 81003; 81025; 83690; 83735; 84484; 85025; 93005; 93010; 99285; Q0169

== ENCOUNTER → 2023-07-26 08:44 | Outpatient (BNVA) | payer MEDICAID, SELFPAY | PROVIDERS: PCP Family Medicine; Visit Provider Nurse Practitioner | DX: S83.004A Unspecified dislocation of right patella, initial encounter; W01.0XXA Fall on same level from slipping, tripping and stumbling without subsequent striking against object, initial encounter | CPT/HCPCS: 73562 ==

== ENCOUNTER → 2023-08-25 10:01 | Outpatient (BNVA) | payer MEDICAID, SELFPAY | PROVIDERS: PCP Family Medicine; Visit Provider Nurse Practitioner | DX: S83.004D Unspecified dislocation of right patella, subsequent encounter; W01.0XXD Fall on same level from slipping, tripping and stumbling without subsequent striking against object, subsequent encounter | CPT/HCPCS: 73562 ==

== ENCOUNTER 2023-11-09 09:33 | Outpatient (RCR) | payer MEDICAID, SELFPAY | END 2023-11-20 23:59 | disposition home or self-care (01) | LOC: SPT 09:33 | PROVIDERS: PCP Family Medicine; Visit Provider Nurse Practitioner | DX: M25.561 Pain in right knee (principal); G89.29 Other chronic pain | CPT/HCPCS: 97110; 97161 ==

== ENCOUNTER 2023-11-21 06:00 | Outpatient (RCR) | payer MEDICAID, SELFPAY | END 2023-12-15 23:59 | disposition home or self-care (01) | LOC: SPT 06:00 | PROVIDERS: PCP Family Medicine; Visit Provider Nurse Practitioner | DX: M25.561 Pain in right knee (principal); G89.29 Other chronic pain | CPT/HCPCS: 97110 ==